=== PATIENT | female | born 1970 | race Caucasian/White ===

== ENCOUNTER 2018-04-22 08:46 | Day surgery (SDC) | payer OTHER, MEDICAID, SELFPAY ==
[2018-04-21 11:48] VITALS: BMI 49.2
[2018-04-22] VITALS (15 sets, daily range): BP systolic 127–155; BP diastolic 55–81; PULSE 65–114; RESP 16–24; TEMP 36.1–36.8; O2SAT 93–99; BMI 49.2
--- NOTE | 2018-04-22 | PATH_ITS ---
[facility] Accession Number: [id number] . 01 Material submitted: . GALLBLADDER . 02 Diagnosis: Gallbladder, Cholecystectomy: Chronic cholecystitis. No calculi identified. Negative for dysplasia and malignancy. 04/24/2018 . 02 Electronically signed: . Gerda Vora MD, Pathologist NPI- [id number] . 01 Gross description: . Received in formalin, labeled gallbladder, is an opened gallbladder (length-6.2 cm, diameter-1.5 cm) with persaud-pink, smooth, shiny serosa and a patent cystic duct. No lymph nodes are identified. The mucosa is cheney, smooth, and flat. The wall is up to 0.1 cm thick. No bile or calculi are present. No nodules, masses, or lesions are identified. Section code: (A1) cystic duct resection margin and two serial sections from the body; (A2) two longitudinal sections from the fundus. ([id number]) /FRR . 02 Pathologist provided ICD-10: K81.1 . 02 CPT . 321367 Performed at: 01 [facility] [address] [place] [address], [place], [place] [id number] MD Raudel Urena MD Phone: [phone] Performed at: 02 [facility] [address] [place], [place] [id number] MD Ludwig Nguyen MD Phone: [phone]
--- NOTE | 2018-04-22 07:02 | PM.PREOP ---
Pre-operative Note Interval Note Pre-op Check: History & Physical Reviewed by Physician and Exam Performed H&P completed within 30 days and has changed as indicated here:: Patient seen and examined in the office on April 10, 2018. History and physical examination from that day is on the chart. There are no changes to that document. We will proceed with laparoscopic cholecystectomy today as planned.
[2018-04-22] MEDS: LACTATED RINGERS 1,000 ML 42 ML IV ×2 (10:18→11:56)
[2018-04-22] MEDS: CLINDAMYCIN 900 MG/50 ML PIGGYBACK 50 MG IV (10:27)
--- NOTE | 2018-04-22 10:50 | SUR.OPER ---
Supine on padded OR bed, head on pillow, arms secured on padded arm boards at <90 degrees abduction, legs uncrossed, safety belt at thigh, tape over blanket over lower legs, footboard used.
[2018-04-22] MEDS: LIDOCAINE 1% W/EPI INJ 30 ML INJ (10:59)
[2018-04-22] MEDS: BUPIVACAINE 0.5% (PF) 30 ML VIAL INJ (10:59)
[2018-04-22] MEDS: THROMBIN (BOVINE) 5,000 UNIT VIAL 10000 UNIT TOP (11:55)
--- NOTE | 2018-04-22 12:23 | PM.OP.1 ---
Operative Date/Time/Diagnoses - Date of procedure: 04/22/18 Time of procedure: 12:23 Post-op diagnosis: same Procedure & Clinicians Procedure: Laparoscopic cholecystectomy Same procedure as scheduled: Yes Indications: 47-year-old morbidly obese female who presented with intermittent right upper quadrant abdominal pain consistent with biliary colic. She had no evidence of gallstones but did have a significantly diminished ejection fraction on HIDA scan with CCK administration. Because her symptoms were consistent with biliary disease she was recommended to undergo cholecystectomy. Surgeon: Marquis Mascorro Click Yes if Unassisted: Yes Anesthesia Type: General Operative Notes Findings: 1. Fatty infiltrated liver but without evidence of other lesions or abnormalities 2. Adhesions in the left lower quadrant and pelvis consistent with prior hysterectomy 3. No free fluid anywhere in the abdomen 4. Grossly normal stomach, small bowel, and colon within the noted limitations of laparoscopic visualization Closure Type: primary Specimen(s): other (Gallbladder) Implants & Drains: None Procedure in detail: After obtaining informed consent the patient was brought to the operating room placed supine on the table. After satisfactory induction of anesthesia the abdomen was prepped and draped in usual sterile fashion. The SCOAP time out was performed per standard protocol. Local anesthesia consisting of a one-to-one mixture 1% lidocaine with 1 100,000 epinephrine and 0.25% plain Marcaine was injected in the skin and subcutaneous tissue at the superior aspect of the umbilicus for postoperative analgesia. Vertical midline incision was created for distance of approximately 2 cm with 11 scalpel blade at the superior aspect the umbilicus. Blunt dissection revealed the rectus fascia which was divided in the midline with a 11. Scalpel blade. Edges of the fascia were secured bilaterally with Eric clamps. The fascia was elevated into the operative field and 2 individual interrupted 0 Vicryl sutures were placed through the fascia superiorly and inferiorly. Peritoneum was then exposed and clamped meticulously between hemostats then divided under direct visualization sharply. Under direct visualization a blunt 12 mm Sevilla trocar was inserted into the abdomen and a carbon dioxide pneumoperitoneum was created. Abdomen was visually explored with a 30 degree 5 mm laparoscoped. Findings are as above. Patient was placed in reverse Trendelenburg position. 5 mm epigastric trocar was inserted just to the right of the falciform ligament in the subxiphoid position after obtaining local anesthesia. In a similar fashion 2 additional 5 mm trocars were placed in the right lateral abdomen. A ratcheted grasper was used to secure the fundus of the gallbladder which was then retracted superiorly and medially. There were several adhesions between the omentum and the gallbladder taken down bluntly with Christiano graspers. Infundibulum of the gallbladder was secured with a Christiano grasper and retracted inferiorly and laterally. Meticulous dissection in the triangle of Calot was performed with a [place] dissecting thereby exposing the cystic duct and cystic artery. Structures were skeletonized overlying connective tissue and their junctions with the gallbladder were clearly visualized. Critical view was obtained of the liver bed through the avascular window between the cystic duct and cystic artery. Three clips were then placed proximally on each structure and 1 distally. Both structures were divided with laparoscopic scissors. There was a small posterior vessel directly entering the gallbladder which was controlled with 2 clips proximally 1 distally then divided with the scissors as well. Monopolar cautery was used to remove the gallbladder from the hepatic bed. Specimen was placed in an endo-pouch and retrieved through the umbilical trocar site. Specimen was sent for permanent section. There was a single bleeding hepatic venous superficial vessel just at the hepatic bed which demonstrated generalized oozing. Despite monopolar cautery I was unable to completely control it and therefore placed Gel-Foam and thrombin on the liver bed over the structure. Hemostasis was then obtained. Previously placed clips were meticulously visualized and noted to be in good position. There was no evidence of hemorrhage or bile leakage. Right upper quadrant including the liver bed was irrigated with copious amounts of sterile saline solution. Irrigant was suctioned from the abdomen and noted be completely clear. Liver bed structures were again examined and noted to be hemostatic. Patient was returned to the supine position. Right upper quadrant was again irrigated and suction with sterile saline solution. Irrigant returned clear and hemostasis was verified. Instruments and trocars were removed under direct laparoscopic visualization. Hemostasis at the incisions was noted. Carbon dioxide was evacuated. Fascia at the umbilical site was closed with the previously placed 0 Vicryl suture including an additional 0 Vicryl suture between the superior and inferior stitches. Skin at all 4 incisions was then closed in a subcuticular fashion using running 4 0 Monocryl suture. Dermal adhesive was placed on the skin. Anesthesia was reversed and patient extubated in the operating room. She was taken recovery in stable condition. Complications: none Condition: stable Disposition: PACU Plan for aftercare: 1. Discharge to home 2. Follow up in surgery Clinic in 2 weeks
[2018-04-22] MEDS: METOCLOPRAMIDE 10 MG/2 ML INJ IV (12:33)
--- NOTE | 2018-04-22 12:37 | SUR.PHASEI ---
Intermittent shaking of lower extremities. Denies feeling cold or anxious. Will watch.
[2018-04-22] MEDS: MEPERIDINE 50 MG/ML IV ×2 (12:42→13:01)
--- NOTE | 2018-04-22 13:04 | SUR.PHASEI ---
Continued shivering. Second doseof Demerol to make a total of 50mg given. As with the first dose becoming more somnolent and some decrease in sats seen. Hx of MANUEL noted.
--- NOTE | 2018-04-22 13:11 | SUR.PHASEI ---
Slow but steady recovery with some shivering, not initially resposnive to Demerol and after a second dose appearing resolved. Low grade nausea reported better after Reglan. Droswy after med (IV) receipt prolonging stay. BP stable with initial tachy HR resolving to preop readings.
[2018-04-22] MEDS: OXYCODONE/ACETAMINOPHEN 5/325 TABLET 1 TAB PO (13:18)
[2018-04-22] MEDS: ONDANSETRON 4 MG/2 ML INJ IV (13:40)
--- NOTE | 2018-04-22 13:42 | SUR.PHASEI ---
Prior to discharge to Phase II, c/o mild right shoulder pain. Bed flattened with some resolution.
--- NOTE | 2018-04-22 13:52 | SUR.PHASEII ---
parents at bedside- pt medicated with ondansetron for mild nausea, tolerating ice chips.
--- NOTE | 2018-04-22 16:18 | SUR.PHASEII ---
late entry: pt had some nausea on and off through out shift, fluids continued and pt finally nausea free, ate crackers and water and ice chips. assisted to br, steady when up voided x 1. incisions with glue remained c/d/i. vss. pt left when ready and left in stable condition.
== END 2018-04-22 15:00 | disposition home or self-care (01) ==
PROVIDERS: Family Provider Family Medicine; PCP Family Medicine; Visit Provider Surgery
PROC: 0FT44ZZ Resection of Gallbladder, Percutaneous Endoscopic Approach (ICD-10-PCS; CPT 47562; principal; 2018-04-22 10:15)
DX: K81.1 Chronic cholecystitis (principal); K76.0 Fatty (change of) liver, not elsewhere classified; K66.0 Peritoneal adhesions (postprocedural) (postinfection); G47.33 Obstructive sleep apnea (adult) (pediatric); E66.01 Morbid (severe) obesity due to excess calories; Z68.42 Body mass index [BMI] 45.0-49.9, adult
CPT/HCPCS: 47562; J1100; J2175; J2405; J2704; J2765; J3010

== ENCOUNTER → 2018-07-16 09:27 | Outpatient (CLI) | payer OTHER, MEDICAID, SELFPAY ==
--- NOTE | 2018-07-16 | DI.MRI.S_ITS ---
PROCEDURE: MR LUMBAR SPINE WO CON INDICATIONS: CHRONIC MIDLINE LOW BACK PAIN TECHNIQUE: Noncontrast sagittal T1 spin echo and T2 fast echo, sagittal STIR, axial T1 and T2 fast spin echo through the lumbar spine. In cases with scoliosis, additional coronal T2 fast spin echo may be performed. COMPARISON: [facility], , L-SPINE 2-3 VIEWS, 04/05/2014, 10:58. FINDINGS: Image quality: Excellent. Alignment and Curvature: There is normal bony alignment. Bone Marrow: Marrow is of normal overall signal. No acute vertebral body compression fractures. Spinal Cord: Conus medullaris terminates at the T12-L1 level. Visualized cord demonstrates normal signal and size. Paraspinous Soft Tissues: No paravertebral masses. T12-L1: Normal appearance. L1-L2: Normal appearance. L2-L3: Normal appearance. L3-L4: The disc height is well-preserved. Loss of disc signal is seen at this level. Mild generalized disc bulge is seen. Mild facet joint hypertrophy is seen. There is minimal to mild right-sided and minimal left-sided neural foraminal narrowing seen. Minimal central canal narrowing is seen. L4-L5: The disc height and disk signal are well-preserved. Mild generalized disc bulge is seen. Mild facet joint hypertrophy is seen. There is mild to moderate left-sided and mild right-sided neural foraminal narrowing seen. Mild central canal narrowing is seen. L5-S1: The disc height and disk signal are well-preserved. Mild generalized disc bulge is seen. Mild facet joint hypertrophy is seen. No significant neural foraminal or central canal narrowing are seen. IMPRESSION: Lower lumbar spine degenerative changes are seen, which are overall most prominent at the L3-L4 level and L4-L5 level. Dictated by: Dipak Toscano M.D. on 07/16/2018 at 11:08 Approved by: Dipak Toscano M.D. on 07/16/2018 at 11:12
== END ==
PROVIDERS: Family Provider Family Medicine; PCP Family Medicine; Visit Provider Family Medicine
DX: M54.5 Low back pain (principal); M51.36 Other intervertebral disc degeneration, lumbar region; M51.37 Other intervertebral disc degeneration, lumbosacral region
CPT/HCPCS: 72148

== ENCOUNTER → 2018-10-22 10:41 | Outpatient (CLI) | payer OTHER, MEDICAID, SELFPAY ==
--- NOTE | 2018-10-22 | DI.MG.S_ITS ---
BILATERAL DIGITAL SCREENING MAMMOGRAM 3D/2D WITH CAD: 10/22/2018 CLINICAL: Routine screening. Family history of breast cancer. Comparison is made to exams dated: 09/04/2017 mammogram and 08/27/2016 mammogram - [facility]. The tissue of both breasts is heterogeneously dense. This may lower the sensitivity of mammography. Current study was also evaluated with a Computer Aided Detection (CAD) system. No significant masses, calcifications, or other findings are seen in either breast. There has been no significant interval change. IMPRESSION: NEGATIVE There is no mammographic evidence of malignancy. A 1 year screening mammogram is recommended. This exam was interpreted at Station ID: [id number]. NOTE: For mammograms, a report in lay terms will be sent to the patient. Approximately 15% of breast malignancies will not be visualized mammographically. In the management of a palpable breast mass, a negative mammogram must not discourage biopsy of a clinically suspicious lesion. Electronically Signed By: Kristal rivera/mehreen:10/22/2018 16:27:28 letter sent: Normal Exam ACR BI-RADS Category 1: Negative [id number]
== END ==
PROVIDERS: Family Provider Family Medicine; PCP Family Medicine; Visit Provider Family Medicine
DX: Z12.31 Encounter for screening mammogram for malignant neoplasm of breast (principal); Z80.3 Family history of malignant neoplasm of breast
CPT/HCPCS: 77063; 77067

== ENCOUNTER 2019-06-30 09:22 | Outpatient (CLI) | payer OTHER, MEDICAID, SELFPAY ==
[2019-06-30] VITALS (8 sets, daily range): BP systolic 127–159; BP diastolic 76–92; PULSE 79–99; RESP 16; TEMP 36.6; O2SAT 97–100
--- NOTE | 2019-06-30 09:23 | DI.RAD.S_ITS ---
PROCEDURE: PAIN L/S FACET INJ/BLK 1ST JEROD COMPARISON: None. INDICATIONS: SPONDYLOSIS FINDINGS: Intraoperative fluoroscopic images of lower lumbar spine shows spinal needle at bilateral L5-S1 levels. Total fluoroscopy time is 23 seconds. IMPRESSION: Fluoroscopy guidance was provided intraoperatively for bilateral L5-S1 facet joint injection. Dictated by: Andi Hodges M.D. on 06/30/2019 at 12:49 Approved by: Andi Hodges M.D. on 06/30/2019 at 12:50
[2019-06-30] MEDS: MIDAZOLAM 5 MG/5 ML VIAL IV (10:46)
[2019-06-30] MEDS: IOPAMIDOL 15 ML VIAL 3 ML INJ (10:52)
[2019-06-30] MEDS: BUPIVACAINE 0.5% (PF) VIAL 5 ML INJ (10:52)
[2019-06-30] MEDS: LIDOCAINE 1% 20 ML 10 ML INJ (10:52)
[2019-06-30] MEDS: BETAMETHASONE 30 MG/5 ML MDV 12 MG INJ (10:52)
--- NOTE | 2019-06-30 10:57 | PC.NURSE ---
ASSISTING PT OFF TABLE AND TRANSPORTING TO POST PROC AREA IN STABLE CONDITION
--- NOTE | 2019-06-30 11:01 | PM.PROC.1 ---
Procedures Date/Time Date of procedure: 06/30/19 Time of procedure: 11:01 General Procedure description: PREOP DIAGNOSIS 1. FACET ARTHROPATHY, 2. AXIAL LBP, 3. MULTILEVEL DDD, POST OP DIAGNOSIS 1. FACET ARTHROPATHY, 2. AXIAL LBP, 3. MULTILEVEL DDD, PROCEDURES 1. FLUORSCOPICALLY GUIDED CONTRAST CONTROLLED FACET JOINT INJECTIONS BILATERAL L5/S1 PHYSICIAN: Chin Keller, DO INDICATIONS Francesco is referred by for treatment of Axial LBP FINDINGS Multilevel Facet Arthropathy with Clinically significant axial LBP DESCRIPTION OF PROCEDURE Fluoroscopically guided, contrast-controlled bilateral L5/S1 facet joint injections. Following review of allergy and review of potential side effects and complications, including, but not necessarily limited to, infection, allergic reaction, local tissue breakdown, stroke, temporary or permanent nerve injury, paralysis, and possible , the patient indicated that the patient understood and agreed to proceed. An informed consent document was signed by the patient, witnessed by a nurse, and placed in the patient's chart. Additionally, other treatment options including medications, modalities, and physical therapy were reviewed with the patient. After review of previous anaesthesic history and IV conscious sedation the patient was deemed safe to proceed with todays procedure with IV conscious sedation as ASA class II designation. Safety time-out was performed to confirm patient ID, procedure to be performed and site of procedure. IV sedation was accomplished with a combination of 4mg of Versed administered by the RN after DO order, titrated to patient comfort during the course of the procedure while the patient remained responsive to all verbal commands In the prone position, following sterile prep and drape of the lumbar region, the posterior aspect of the L5/S1 facet joints were identified fluoroscopically. The skin was anesthetized via a 25-gauge 1.5-inch needle with 1% lidocaine solution into the corresponding facet joints. At this point, a 22-gauge 5-inch spinal needle was atraumatically introduced and advanced under fluoroscopic guidance into the corresponding facet joints. Following negative aspiration, injections of approximately 0.2-cc of Isovue 200 confirmed interarticular placement without vascular uptake. The identical procedure was then performed at the L5/S1 facet joints on the left. Radiological data, including multiple fluoroscopic views of the lumbosacral spine, reveal a spinal needle at the L5/S1 facet joints bilaterally. Subsequent views show flow of contrast material both superiorly and inferiorly within the joint space without vascular or intrathecal uptake. At this point, a total of 0.5cc including a mixture of 0.25cc Marcaine and 0.25cc betamethasone was injected without complication into each of the corresponding facet joints. The patient tolerated the procedure well without signs or symptoms of complications prior to transfer to the recovery area continued monitoring without incident. The patient was then transferred to the recovery area where they were observed for an appropriate period of time after the injection. The patient reported a VAS score of 7 prior to the procedure and a post-procedure VAS of 0. Total Fluoroscopy Time: 21.0 seconds Total conscious sedation time: 24 min POST OP INSTRUCTIONS The patient was provided a Pain Log to continue to record their response to the target-specific procedure prior to follow-up visit with their referring physician. Additionally, specific post-injection care instructions and a contact number to our office were provided if concerns arise regarding possible complications associated with the procedure are suspected. Chin Keller, Complications: none
--- NOTE | 2019-06-30 11:04 | PC.NURSE ---
Pt returned from procedure via wheelchair awake and alert and able to transfer from w/c to chair with standby assist. Resumed monitoring from Betsy LENNON.
== END 2019-06-30 11:25 ==
LOC: RAD 09:22
PROVIDERS: Family Provider Family Medicine; PCP Family Medicine; Visit Provider Physical Medicine & Rehabilitation
DX: M47.817 Spondylosis without myelopathy or radiculopathy, lumbosacral region (principal)
CPT/HCPCS: 64493; 99152; J0702; J2250; J3010

== ENCOUNTER 2020-01-14 11:28 | Outpatient (CLI) | payer OTHER, MEDICAID, SELFPAY ==
[2020-01-14] VITALS (9 sets, daily range): BP systolic 115–153; BP diastolic 56–96; PULSE 70–108; RESP 16–18; TEMP 36.4; O2SAT 96–98
--- NOTE | 2020-01-14 11:29 | DI.RAD.S_ITS ---
PROCEDURE: PAIN L/S FACET INJ/BLK 1ST JEROD COMPARISON: None. INDICATIONS: SPONDYLOSIS FINDINGS: 6 intraoperative fluoroscopy images demonstrate needle placement at L5 and S1 levels bilaterally. IMPRESSION: Fluoroscopy for pain management. Dictated by: Onofre Unger M.D. on 01/14/2020 at 13:45 Approved by: Onofre Unger M.D. on 01/14/2020 at 13:46
[2020-01-14] MEDS: MIDAZOLAM 5 MG/5 ML VIAL IV (13:11)
[2020-01-14] MEDS: LIDOCAINE 1% 20 ML 5 ML INJ (13:23)
[2020-01-14] MEDS: IOPAMIDOL 15 ML VIAL 3 ML INJ (13:24)
[2020-01-14] MEDS: BUPIVACAINE 0.5% (PF) VIAL 2 ML INJ (13:24)
--- NOTE | 2020-01-14 13:25 | PC.NURSE ---
ASSISTING PT OFF TABLE AND TRANSPORTING TO POST PROC AREA IN STABLE CONDITION. PASSING RN CARE OF PT OFF TO VICKY Ramos RN.
--- NOTE | 2020-01-14 13:36 | PM.PROC.1 ---
Procedures Date/Time Date of procedure: 01/14/20 Time of procedure: 13:36 General Procedure description: POST OP DIAGNOSIS 1. FACET ARTHROPATHY PROCEDURES 1. BILATERAL- L5 and S1 MB BLOCKS PHYSICIAN: Chin Keller DO INDICATIONS is referred by for treatment of Bilateral Axial LBP. DESCRIPTION OF PROCEDURE Fluoroscopically guided, contrast-controlled bilateral L5 and S1 medial branch blocks with 0.5cc of 0.5% Marcaine. Following review of allergy and review of potential side effects and complications, including, but not necessarily limited to, infection, allergic reaction, local tissue breakdown, nerve injury, paralysis, stroke and possible , the patient indicated that the patient understood and agreed to proceed. An informed consent document was signed by the patient, witnessed by a nurse, and placed in the patient's chart. After review of previous anaesthesic history and IV conscious sedation the patient was deemed safe to proceed with todays procedure with IV conscious sedation as ASA class II designation. Safety time-out was performed to confirm patient ID, procedure to be performed and site of procedure. IV sedation was accomplished with 5mg of Versed was administered by the RN after DO order, titrated to patient comfort during the course of the procedure while the patient remained responsive to all verbal commands In the prone position, following sterile prep and drape of the lumbar region, the right L5 and S1 anatomical location of the medial branch of the dorsal ramus was identified fluoroscopically. Subsequently an anesthetic skin wheal using 1% lidocaine solution was initiated at each of the anatomical spots. Subsequently then a 22-gauge 5-inch spinal needle was atraumatically introduced and advanced under fluoroscopic guidance at each of the corresponding sites at the right L5 and S1 MB. After negative aspiration, 0.2 cc of Isovue 200 was injected, confirming placement without vascular or intrathecal uptake. Subsequently then 0.5 cc of 0.5% Marcaine solution was injected at each of the corresponding sites at the right L5 and S1 medial branch locations. The identical procedure was replicated on the left. The patient tolerated the procedure well without signs or symptoms of complications. The patient tolerated the procedure well without signs or symptoms of complications prior to transfer to the recovery area continued monitoring without incident. Post-procedure, the patient was monitored initiating provocative activities to measure the amount of relief from block of the facetogenic pain. The patient reported a VAS of 7 prior to the procedure and a post-procedure VAS of 2. It has been a pleasure to assist in the diagnostic and therapeutic care of your patient. Total Fluoroscopy Time: 12 seconds Total Conscious Sedation Time: 24min POST OP INSTRUCTIONS The patient was provided with a Pain Log to complete over the next several hours and subsequent days prior to the patient's follow up with the ordering physician. If the patient has corporate strategy intern relief to the solution applied, then they may be a candidate for medial branch rhizotomy. The patient is aware, was provided, once again, with a Pain Log and will follow up with the referring physician for review and clinical correlation Chin Keller DO Complications: none
--- NOTE | 2020-01-14 13:47 | PC.NURSE ---
1340: Received patient post procedure by Betsy LENNON, trasferred from to chair with min assist. VSS upon arrival.
== END 2020-01-14 13:50 | disposition home or self-care (01) ==
LOC: RAD 11:29
PROVIDERS: Family Provider Family Medicine; PCP Family Medicine; Referring Provider Family Medicine; Visit Provider Physical Medicine & Rehabilitation
DX: M47.817 Spondylosis without myelopathy or radiculopathy, lumbosacral region (principal)
CPT/HCPCS: 64493; 99152; J2250; J3010

== ENCOUNTER → 2021-05-24 08:38 | Outpatient (CLI) | payer OTHER, MEDICAID, SELFPAY ==
[2021-05-24 20:07] LABS: Add Manual Diff / Slide Review NO; Basophils Absolute Auto 0 /uL (0-100); Basophils Percent Auto 0.3 % (0-2); Eosinophils Absolute Auto 200 /uL (0-450); Eosinophils Percent Auto 2.6 % (2-4); Hemoglobin 13.4 g/dL (12.0-16.0); Lymphocytes Absolute Auto 2800 /uL (1100-4500); Lymphocytes Percent Auto 38.9 % (25-40); Mean Corpuscular HGB Conc 32.7 % (30-36); Mean Corpuscular Hemoglobin 28.6 PG (26-34); Mean Corpuscular Volume 87.4 fL (80-100); Monocytes Absolute Auto 600 /uL (0-900); Monocytes Percent Auto 8.2 % (3-14); Neutrophils Absolute Auto 3600 /uL (1500-7000); Platelet Count 312 X10^3/uL (150-400); Red Blood Cell Count 4.69 X10^6/uL (4.0-5.2); Red Cell Distribution Width 14.1 % (11.6-14.8); White Blood Cell Count 7.1 X10^3/uL (4.5-11.0)
[2021-05-24 20:47] LABS: Alanine Aminotransferase 19 IU/L (<35); Albumin 3.8 g/dL (3.5-5.0); Albumin Globulin Ratio 1.2 (1.0-2.8); Alkaline Phosphatase 88 U/L (38-126); Aspartate Aminotransferase 25 IU/L (14-36); BUN Creatinine Ratio 11.7 (6-22); Bilirubin Total 0.6 mg/dL (0.2-1.3); Blood Urea Nitrogen 9 mg/dL (7-17); Calcium 9.5 mg/dL (8.4-10.2); Carbon Dioxide 28 mmol/L (22-32); Chloride 105 mmol/L (98-107); Cholesterol 154 mg/dL (140-199); Estimated Glomerular Filt Rate > 60.0 mL/min (>60); Globulin 3.2 g/dL (1.7-4.1); Glucose 122 mg/dL (70-100); HDL Cholesterol 41 mg/dL (40-60); HEMOLYSIS < 15 (0-50); LDL Cholesterol Calculated 82 mg/dL (<100); Potassium 4.4 mmol/L (3.4-5.1); Sodium 139 mmol/L (137-145); Triglycerides 155 mg/dL (35-150)
[2021-05-24 20:58] LABS: Follicle Stimulating Hormone 5.29 mIU/mL; Luteinizing Hormone 2.51 mIU/mL
[2021-05-24 21:14] LABS: TSH w/ Reflex to FT4 0.91 uIU/mL (0.47-4.68)
[2021-05-30 08:16] LABS: Estrogen 189 pg/mL (.)
== END ==
PROVIDERS: Family Provider Family Medicine; PCP Family Medicine; Referring Provider Family Medicine; Visit Provider Family Medicine
DX: E66.01 Morbid (severe) obesity due to excess calories (principal); F32.9 Major depressive disorder, single episode, unspecified; F41.9 Anxiety disorder, unspecified; R19.8 Other specified symptoms and signs involving the digestive system and abdomen; R53.83 Other fatigue; Z68.43 Body mass index [BMI] 50.0-59.9, adult; Z90.710 Acquired absence of both cervix and uterus
CPT/HCPCS: 80053; 80061; 82672; 83001; 83002; 84443; 85025

== ENCOUNTER → 2021-10-05 09:15 | Outpatient (CLI) | payer OTHER, MEDICAID, SELFPAY ==
--- NOTE | 2021-10-05 09:29 | DI.CT.S_ITS ---
PROCEDURE: CT ABDOMEN PELVIS WO/W CON INDICATIONS: Other microscopic hematuria TECHNIQUE: Optional 5 mm thick noncontrast images acquired from the diaphragm to the symphysis pubis. After the administration of intravenous contrast, 5 mm thick images acquired from the diaphragm to the symphysis pubis after a 10-minute delay. 2 mm thick coronal and sagittal reformats were then performed of the kidneys and ureters. For radiation dose reduction, the following was used: automated exposure control, adjustment of mA and/or kV according to patient size. COMPARISON: None. FINDINGS: Image quality: Excellent. Lung bases: Right middle lobe pulmonary nodule measuring 0.5 cm, (4/4). Minimal bibasilar atelectasis. Heart size is normal. Urinary system: Both kidneys are normal in size. There is an obstructing calculus at the left UPJ measuring 1.4 x 1.1 cm, (2/36). Mild left hydronephrosis. No additional kidney stones. No filling defect in the opacified right ureter. The left ureter is not opacified. Bladder wall thickness is normal. No calcified bladder stones. Other solid organs: Right lobe of the liver is prominent. Gallbladder is surgically absent . Biliary system is non dilated. Pancreas enhances normally. Spleen is normal in size and enhancement. Small splenules. No adrenal nodules. Peritoneum and bowel: Bowel loops demonstrate normal wall thickness and caliber. No free fluid or air. Nodes and vessels: No retroperitoneal or mesenteric adenopathy by size criteria. Aorta and inferior vena cava are normal in size. Circumaortic left renal vein. Abdominal wall: No ventral hernias. Pelvis: No pathologic free pelvic fluid. Uterus is absent. No inguinal hernias or adenopathy. Bones: No suspicious bony lesions. No vertebral body compression fractures. IMPRESSION: 1. Obstructing calculus at the left UPJ measuring 1.4 cm. Mild hydronephrosis. 2. No additional kidney stones. 3. No filling defect in the opacified right ureter. The left ureter is not opacified and cannot be evaluated. Comment: Findings were conveyed to the urology clinic on behalf of Sheila Thornton at the time of dictation. Dictated by: Reginald Mahajan M.D. on 10/05/2021 at 11:41 Approved by: Reginald Mahajan M.D. on 10/05/2021 at 11:54
== END ==
PROVIDERS: Family Provider Family Medicine; PCP Family Medicine; Referring Provider Urology; Visit Provider Urology
DX: N13.2 Hydronephrosis with renal and ureteral calculous obstruction (principal); R31.29 Other microscopic hematuria; R91.1 Solitary pulmonary nodule; Z90.49 Acquired absence of other specified parts of digestive tract
CPT/HCPCS: 74178; Q9967

== ENCOUNTER → 2022-02-05 08:29 | Outpatient (CLI) | payer OTHER, MEDICAID, SELFPAY ==
[2022-02-05 20:36] LABS: COVID19 - ORCAS (NP or Nasal) Negative (Negative)
== END ==
PROVIDERS: Family Provider Family Medicine; PCP Family Medicine; Visit Provider Physician Assistant
DX: Z01.812 Encounter for preprocedural laboratory examination (principal); Z20.822 Contact with and (suspected) exposure to COVID-19
CPT/HCPCS: C9803; U0003

== ENCOUNTER 2022-02-19 08:33 | Emergency (ER) | payer OTHER, MEDICAID, SELFPAY ==
[2022-02-19 09:07] VITALS: BP 174/71; PULSE 67; RESP 20; TEMP 37; O2SAT 98; BMI 53.5
[2022-02-19 09:50] LABS: Appearance Urine UA SL CLOUDY; Bilirubin Urine UA NEGATIVE (NEGATIVE); Color Urine UA YELLOW; Glucose Urine UA NEGATIVE (Negative); Ketones Urine UA NEGATIVE (NEGATIVE); Leukocyte Esterase Urine UA 1+ (NEGATIVE); Nitrite Urine UA NEGATIVE (Negative); Occult Blood Urine UA 3+ (Negative); Protein Urine UA 1+ (Negative); Urobilinogen Urine UA 0.2 E.U./dL (0.2)
[2022-02-19 09:59] LABS: Bacteria Urine None Seen; Culture Indicated Urine Specimen Cultured; RBC Urine 30-100/HPF (0-5/HPF); WBC Urine 1-5/HPF (0-5/HPF)
--- NOTE | 2022-02-19 10:13 | DI.CT.S_ITS ---
PROCEDURE: CT ABDOMEN PELVIS W CON INDICATIONS: pain after ureteral stent TECHNIQUE: After the administration of intravenous contrast, axial sections acquired from the lung bases to the pubic symphysis. Coronal and sagittal reformats were performed. For radiation dose reduction, the following was used: automated exposure control, adjustment of mA and/or kV according to patient size. COMPARISON: [facility], CT, CT ABDOMEN PELVIS WO/W CON, 10/05/2021, 9:33. FINDINGS: Image quality: Excellent. Lung bases: Bibasilar dependent atelectasis are seen posteriorly.. Heart: No significant findings. ABDOMEN: Liver: There is hepatomegaly. Mild hepatic steatosis is seen, no discrete hepatic lesion.. Gallbladder: Gallbladder is surgically absent. Biliary ducts: Unremarkable. Pancreas: Unremarkable. Spleen: 2 tiny hypodense areas are noted within spleen parenchyma unchanged from prior study and likely represent tiny cysts. Adrenal Glands: Unremarkable. Kidneys and Ureters: There is interval placement of a left-sided ureteral stent. Moderate left-sided hydronephrosis extending to the level of left UPJ is seen. Nonobstructing stone in lower pole of left kidney is noted and measures 1 cm in size and 440 Hounsfield unit in density. Mild left perinephric fat stranding is seen. No left-sided hydroureter. No right-sided renal stone or hydronephrosis. Stomach and Bowel: Stomach, small bowel loops, and colon are unremarkable. Peritoneum: No abnormal intraperitoneal fluid. No free air. Ventral Wall: No hernias. Abdominal Nodes: No retroperitoneal or mesenteric adenopathy by size criteria. Vessels: Aorta and inferior vena cava are normal in size. PELVIS: Pelvic Organs: Unremarkable. Bladder: Unremarkable. Pelvic Nodes: No enlarged lymph nodes. Miscellaneous: No hernias are seen. Bones: No suspicious bony lesion. No acute vertebral body compression fracture. Degenerative disc disease in lower lumbar spine at L4-5 and L5-S1 levels are seen. IMPRESSION: 1. Interval placement of left-sided ureteral stent with moderate left-sided hydronephrosis and perinephric fat stranding extending to the level of left UPJ concerning for stent malfunction suggest clinical correlation. Nonobstructing stone in lower pole of left kidney. No right-sided hydronephrosis or hydroureter. Normal appearing urinary bladder. 2. No bowel obstruction or abnormal bowel wall thickening. No free fluid or free air. 3. Hepatomegaly and hepatic steatosis. Dictated by: Andi Hodges M.D. on 02/19/2022 at 11:55 Approved by: Andi Hodges M.D. on 02/19/2022 at 12:04
[2022-02-19 11:02] LABS: Pregnancy Test Urine Negative (Negative)
[2022-02-19 11:09] LABS: Add Manual Diff / Slide Review NO; Basophils Absolute Auto 100 /uL (0-100); Basophils Percent Auto 1.2 % (0-2); Eosinophils Absolute Auto 200 /uL (0-450); Hematocrit 39.2 % (36-46); Hemoglobin 13.3 g/dL (12.0-16.0); Lymphocytes Absolute Auto 2500 /uL (1100-4500); Lymphocytes Percent Auto 29.9 % (25-40); Mean Corpuscular Hemoglobin 28.7 PG (26-34); Mean Corpuscular Volume 84.5 fL (80-100); Monocytes Absolute Auto 800 /uL (0-900); Monocytes Percent Auto 9.1 % (3-14); Neutrophils Absolute Auto 4900 /uL (1500-7000); Neutrophils Percent Auto 57.8 % (50-75); Platelet Count 269 X10^3/uL (150-400); Red Blood Cell Count 4.64 X10^6/uL (4.0-5.2); Red Cell Distribution Width 13.7 % (11.6-14.8); White Blood Cell Count 8.5 X10^3/uL (4.5-11.0)
[2022-02-19 11:20] LABS: Alanine Aminotransferase 15 IU/L (<35); Albumin 4.2 g/dL (3.5-5.0); Albumin Globulin Ratio 1.1 (1.0-2.8); Alkaline Phosphatase 83 U/L (38-126); Aspartate Aminotransferase 21 IU/L (14-36); BUN Creatinine Ratio 10.6 (6-22); Bilirubin Total 0.4 mg/dL (0.2-1.3); Blood Urea Nitrogen 10 mg/dL (7-17); Carbon Dioxide 28 mmol/L (22-32); Chloride 109 mmol/L (98-107); Estimated Glomerular Filt Rate > 60 mL/min (>60); Globulin 3.8 g/dL (1.7-4.1); Glucose 121 mg/dL (70-100); HEMOLYSIS < 15 (0-50); Lipase 86 U/L (23-300); Potassium 4.3 mmol/L (3.4-5.1); Sodium 143 mmol/L (137-145)
--- NOTE | 2022-02-19 12:14 | ED.ABDPAIN ---
HPI - Abdominal Pain <NAOMY Hightower - Last Filed: 02/19/22 15:13> General Chief Complaint: Abdominal Pain Stated Complaint: pain after kidney stent placement Time Seen by Provider: 02/19/22 10:13 Source: patient Mode of arrival: Ambulatory History of Present Illness HPI narrative: This is a 51-year-old female presents to the emergency department complaining of left flank and left abdominal pain after her ureteral stent was placed [address] Sheila pugh. 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 Patient denies having a fever, nausea vomiting, states that it has been mostly pain pain into left lower quadrant region. She has been taking 10 mg of Toradol every 6 hours as needed for this. She denies any dysuria, does endorse having bladder spasms before and after voiding. She denies any mathew blood in her urine, denies feeling faint or weak. Related Data Home Medications Medication Instructions Recorded Confirmed cetirizine 10 mg tablet (Aller-Domenic) 10 mg PO DAILY tab 04/10/18 08/16/21 gabapentin 300 mg capsule 2,100 mg PO DAILY cap 04/10/18 08/16/21 omega 0-[id number]-lxw-fish oil 1,000 mg 1,400 mg PO BEDTIME cap 04/10/18 08/16/21 (120 mg-180 mg) capsule (Fish Oil) aripiprazole 10 mg tablet 10 mg PO DAILY 02/12/19 08/16/21 amlodipine 5 mg tablet 5 mg PO DAILY 06/17/19 08/16/21 oxybutynin chloride 5 mg tablet 5 mg PO TID PRN 06/17/19 08/16/21 albuterol sulfate 90 mcg/actuation 2 puff INHALATION Q4-6H PRN 05/22/21 08/16/21 aerosol inhaler atorvastatin 10 mg tablet 10 mg PO DAILY 05/22/21 08/16/21 bupropion HCl 150 mg 24 hr tablet, 150 mg PO QAM 05/22/21 08/16/21 extended release fluticasone propionate 50 2 spray INTRANASAL DAILY 05/22/21 08/16/21 mcg/actuation nasal spray,suspension indomethacin 50 mg capsule 50 mg PO TID 05/22/21 08/16/21 liraglutide 0.6 mg/0.1 mL (18 mg/3 1.2 mg SUBCUT DAILY 05/22/21 08/16/21 mL) subcutaneous pen injector methocarbamol 500 mg tablet 500 mg PO QID PRN 05/22/21 08/16/21 Previous Rx's Medication Instructions Recorded naproxen 500 mg tablet (Naprosyn) 500 mg PO BID PRN #60 tab 04/11/21 tramadol 50 mg tablet 50 mg PO BID PRN #30 tab 04/11/21 ketorolac 10 mg tablet 10 mg PO Q8H PRN #30 tab 02/19/22 lidocaine 5 % topical patch 1 patch TOPICAL DAILY PRN #15 ea 02/19/22 (Lidoderm) oxycodone-acetaminophen 5 mg-325 1 tab PO Q8H PRN #14 tab 02/19/22 mg tablet (Percocet) Allergies Allergy/AdvReac Type Severity Reaction Status Date / Time duloxetine [DULOXETINE] Allergy Severe SOB Verified 02/19/22 09:07 hydrocodone [HYDROCODONE] Allergy Severe HEADACHE Verified 02/19/22 09:07 VOMITING Penicillins [PENICILLINS] Allergy Intermediate RASH Verified 02/19/22 09:07 <Ella Goodwin DO - Last Filed: 02/20/22 19:02> History of Present Illness HPI narrative: This is a 51-year-old female presents to the emergency department complaining of left flank and left abdominal pain after her ureteral stent was placed [address] Sheila Thornton. 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 Patient denies having a fever, nausea vomiting, states that it has been mostly pain pain into left lower quadrant region. She has been taking 10 mg of Toradol every 6 hours as needed for this. She denies any dysuria, does endorse having bladder spasms before and after voiding. She denies any mathew blood in her urine, denies feeling faint or weak. Review of Systems <NAOMY Hightower - Last Filed: 02/19/22 15:13> Review of Systems Narrative: General: denies fever, chills, malaise, sweats, fatigue Head/Neck: denies headache, neck pain, dizziness Eyes: denies visual changes, eye pain Cardio: denies chest pain, palpitations, edema Respiratory: denies dyspnea, cough, orthopnea GI: Endorses left lower quadrant abdominal pain, left flank pain, denies any nausea, vomiting, or diarrhea : denies dysuria, hematuria, urinary retention, frequency or incontinence MSK: denies joint pain, muscle weakness Skin: denies rash, itching, skin lesions or other Neuro: denies numbness, tingling Patient History <NAOMY Hightower - Last Filed: 02/19/22 15:13> Medical History (Updated 02/19/22 @ 13:18 by NAOMY Hightower) Abnormal Pap smear of cervix (~1995) Acne Anxiety Arthritis Bipolar 1 disorder Depression Difficulty swallowing Disc degeneration Eczema Excessive daytime sleepiness Facet arthropathy, lumbar Facet arthropathy, lumbosacral Fatigue Fibromyalgia History of recurrent ear infection Hyperglycemia Hyperlipidemia Irregular menstrual cycle Irritable bowel syndrome (~2000) MCL sprain of left knee edi consultant associated with adverse incidents Migraines Morbid obesity with body mass index (BMI) of 50.0 to 59.9 in adult Nausea & vomiting Obstructive sleep apnea (~1998) PTSD (post-traumatic stress disorder) Restless leg syndrome (~1998) Surgical History (Updated 05/23/21 @ 10:15 by Keith Jorgensen MD) Anesthesia H/O: hysterectomy (~2000) History of cholecystectomy (~2018) Previous section (~1992) S/P hysterectomy Family History (Updated 03/06/21 @ 18:56 by Noa Varela) Grandmother Hypertension Breast cancer Hyperlipidemia Father Hypertension Gall stone Hyperlipidemia Mother Mental health problem Fibromyalgia Social History marital status: unmarried,living together details: Lives with boyfriend number of children: 1 household members: significant other and children occupational status: employed 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 General: cooperative, comfortable, in no acute distress, obese, well developed and well groomed Head: atraumatic, symmetrical facial expressions Neck: supple, atraumatic, without lymphadenopathy. Eyes: pupils equal round and reactive, EOMI, conjunctiva normal Nose: nares patent, no rhinorrhea Mouth/Throat: uvula midline, moist mucus membranes Cardiovascular: regular rate and rhythm, no peripheral edema, warm extremities Respiratory: normal effort, able to speak in complete sentences, no audible wheezing, stridor, or rales. No retractions or tachypnea. GI: abdomen soft, nontender to palpation, nondistended, no masses, no exquisite tenderness with exam, without guarding or rebound. MSK: moves all extremities, ambulatory w/steady gait, neurovascularly intact, no weakness, left flank tenderness him to palpation Skin: brisk capillary refill, no rash, no erythema Neuro: normal speech and cognition, A&O x3, normal tone Psych: mental status is grossly normal, congruent mood, normal affect, pleasant and cooperative Initial Vital Signs Initial Vital Signs: Vital Signs Temperature 98.6 F 02/19/22 09:07 Pulse Rate 67 02/19/22 09:07 Respiratory Rate 20 02/19/22 09:07 Blood Pressure 174/71 H 02/19/22 09:07 Pulse Oximetry 98 02/19/22 09:07 <Ella Goodwin DO - Last Filed: 02/20/22 19:02> Initial Vital Signs Initial Vital Signs: Vital Signs Temperature 98.6 F 02/19/22 09:07 Pulse Rate 67 02/19/22 09:07 Respiratory Rate 20 02/19/22 09:07 Blood Pressure 174/71 H 02/19/22 09:07 Pulse Oximetry 98 02/19/22 09:07 Course <NAOMY Hightower - Last Filed: 02/19/22 15:13> Orders Ordered: Discontinued Medications Ketorolac Tromethamine (Ketorolac 30 Mg/Ml Vial) 15 mg IV NOW ONE Stop: 02/19/22 12:54 Last Admin: 02/19/22 13:31 Dose: 15 mg Documented by: CAROLANN Lidocaine (Lidocaine Patch 1 Each Adh..Patch) 2 each TOP NOW ONE Stop: 02/19/22 13:19 Last Admin: 02/19/22 13:31 Dose: 1 each Documented by: CAROLANN Oxycodone/Acetaminophen (Oxycodone/Apap 5/325 Prepack) 1 bottle MISC SEEINSTR ONE Stop: 02/19/22 13:19 Last Admin: 02/19/22 13:30 Dose: Not Given Documented by: CAROLANN Tramadol HCl (Tramadol 50 Mg Tablet) 50 mg PO NOW ONE Stop: 02/19/22 12:34 Last Admin: 02/19/22 13:27 Dose: Not Given Documented by: CAROLANN Vital Signs Vital signs: Vital Signs - 8 hr 02/19/22 09:07 02/19/22 13:46 Temperature 98.6 F Pulse Rate 67 66 Respiratory Rate 20 18 Blood Pressure 174/71 H 162/87 H Pulse Oximetry 98 96 <Ella Goodwin DO - Last Filed: 02/20/22 19:02> Orders Ordered: Discontinued Medications Ketorolac Tromethamine (Ketorolac 30 Mg/Ml Vial) 15 mg IV NOW ONE Stop: 02/19/22 12:54 Last Admin: 02/19/22 13:31 Dose: 15 mg Documented by: CAROLANN Lidocaine (Lidocaine Patch 1 Each Adh..Patch) 2 each TOP NOW ONE Stop: 02/19/22 13:19 Last Admin: 02/19/22 13:31 Dose: 1 each Documented by: CAROLANN Oxycodone/Acetaminophen (Oxycodone/Apap 5/325 Prepack) 1 bottle MISC SEEINSTR ONE Stop: 02/19/22 13:19 Last Admin: 02/19/22 13:30 Dose: Not Given Documented by: CAROLANN Tramadol HCl (Tramadol 50 Mg Tablet) 50 mg PO NOW ONE Stop: 02/19/22 12:34 Last Admin: 02/19/22 13:27 Dose: Not Given Documented by: CAROLANN Vital Signs Vital signs: Vital Signs - 8 hr 02/19/22 09:07 02/19/22 13:46 Temperature 98.6 F Pulse Rate 67 66 Respiratory Rate 20 18 Blood Pressure 174/71 H 162/87 H Pulse Oximetry 98 96 MDM - Abdominal Pain <NAOMY Hightower - Last Filed: 02/19/22 15:13> Lab Data Result diagrams: 02/19/22 10:55 02/19/22 10:55 Labs: Lab Results 02/19/22 02/19/22 02/19/22 Range/Units 08:42 10:55 10:55 WBC 8.5 (4.5-11.0) X10^3/uL RBC 4.64 (4.0-5.2) X10^6/uL Hgb 13.3 (12.0-16.0) g/dL Hct 39.2 (36-46) % MCV 84.5 (80-100) fL MCH 28.7 (26-34) PG MCHC 34.0 (30-36) % RDW 13.7 (11.6-14.8) % Plt Count 269 (150-400) X10^3/uL Neut % (Auto) 57.8 (50-75) % Lymph % (Auto) 29.9 (25-40) % [place] % (Auto) 9.1 (3-14) % Eos % (Auto) 2.0 (2-4) % Baso % (Auto) 1.2 (0-2) % Neut # (Auto) 4900 (7183-0290) /uL Lymph # (Auto) 2500 (7820-7119) /uL [place] # (Auto) 800 (0-900) /uL Eos # (Auto) 200 (0-450) /uL Baso # (Auto) 100 (0-100) /uL Sodium 143 (137-145) mmol/L Potassium 4.3 (3.4-5.1) mmol/L Chloride 109 H (98-107) mmol/L Carbon Dioxide 28 (22-32) mmol/L BUN 10 (7-17) mg/dL Creatinine 0.94 (0.52-1.04) mg/dL Estimated GFR > 60 (>60) mL/min BUN/Creatinine Ratio 10.6 (6-22) Glucose 121 H (70-100) mg/dL Calcium 9.0 (8.4-10.2) mg/dL Total Bilirubin 0.4 (0.2-1.3) mg/dL AST 21 (14-36) IU/L ALT 15 (<35) IU/L Alkaline Phosphatase 83 (38-126) U/L Total Protein 8.0 (6.3-8.2) g/dL Albumin 4.2 (3.5-5.0) g/dL Globulin 3.8 (1.7-4.1) g/dL Albumin/Globulin Ratio 1.1 (1.0-2.8) Lipase 86 (23-300) U/L Urine Color Yellow Urine Appearance Sl cloudy Urine pH 6.0 (4.5-8.0) Ur Specific [place] 1.010 (1.000-1.035) Urine Protein 1+ H (Negative) Urine Glucose (UA) Negative (Negative) g/dL Urine Ketones Negative (NEGATIVE) Urine Occult Blood 3+ H (Negative) Urine Nitrate Negative (Negative) Urine Bilirubin Negative (NEGATIVE) Urine Urobilinogen 0.2 (0.2) E.U./dL Ur Leukocyte Esterase 1+ H (NEGATIVE) Urine RBC 30-100/hpf H (0-5/HPF) Urine WBC 1-5/hpf (0-5/HPF) Urine Bacteria None seen (None) Ur Culture Indicated? Specimen cultured Urine Test (Negative) 02/19/22 Range/Units 10:57 WBC (4.5-11.0) X10^3/uL RBC (4.0-5.2) X10^6/uL Hgb (12.0-16.0) g/dL Hct (36-46) % MCV (80-100) fL MCH (26-34) PG MCHC (30-36) % RDW (11.6-14.8) % Plt Count (150-400) X10^3/uL Neut % (Auto) (50-75) % Lymph % (Auto) (25-40) % [place] % (Auto) (3-14) % Eos % (Auto) (2-4) % Baso % (Auto) (0-2) % Neut # (Auto) (8403-9891) /uL Lymph # (Auto) (4862-3812) /uL [place] # (Auto) (0-900) /uL Eos # (Auto) (0-450) /uL Baso # (Auto) (0-100) /uL Sodium (137-145) mmol/L Potassium (3.4-5.1) mmol/L Chloride (98-107) mmol/L Carbon Dioxide (22-32) mmol/L BUN (7-17) mg/dL Creatinine (0.52-1.04) mg/dL Estimated GFR (>60) mL/min BUN/Creatinine Ratio (6-22) Glucose (70-100) mg/dL Calcium (8.4-10.2) mg/dL Total Bilirubin (0.2-1.3) mg/dL AST (14-36) IU/L ALT (<35) IU/L Alkaline Phosphatase (38-126) U/L Total Protein (6.3-8.2) g/dL Albumin (3.5-5.0) g/dL Globulin (1.7-4.1) g/dL Albumin/Globulin Ratio (1.0-2.8) Lipase (23-300) U/L Urine Color Urine Appearance Urine pH (4.5-8.0) Ur Specific [place] (1.000-1.035) Urine Protein (Negative) Urine Glucose (UA) (Negative) g/dL Urine Ketones (NEGATIVE) Urine Occult Blood (Negative) Urine Nitrate (Negative) Urine Bilirubin (NEGATIVE) Urine Urobilinogen (0.2) E.U./dL Ur Leukocyte Esterase (NEGATIVE) Urine RBC (0-5/HPF) Urine WBC (0-5/HPF) Urine Bacteria (None) Ur Culture Indicated? Urine Test Negative (Negative) Imaging Data CT scan - abdomen/pelvis: Radiologist's Impression: PROCEDURE:? CT ABDOMEN PELVIS W CON ? INDICATIONS:? pain after ureteral stent ? TECHNIQUE:? After the administration of intravenous contrast, axial sections acquired from the lung bases to the pubic symphysis.? Coronal and sagittal reformats were performed.? For radiation dose reduction, the following was used:? automated exposure control, adjustment of mA and/or kV according to patient size.? ? COMPARISON:? [facility], CT, CT ABDOMEN PELVIS WO/W CON, 10/05/2021, 9:33. ? FINDINGS:? Image quality:? Excellent.? ? Lung bases:? Bibasilar dependent atelectasis are seen posteriorly.. Heart:? No significant findings. ? ABDOMEN: Liver:? There is hepatomegaly.? Mild hepatic steatosis is seen, no discrete hepatic lesion..? ? Gallbladder:? Gallbladder is surgically absent. Biliary ducts:? Unremarkable.? ? Pancreas:? Unremarkable.? ? Spleen:? 2 tiny hypodense areas are noted within spleen parenchyma unchanged from prior study and likely represent tiny cysts. Adrenal Glands:? Unremarkable.? ? Kidneys and Ureters:? There is interval placement of a left-sided ureteral stent.? Moderate left-sided hydronephrosis extending to the level of left UPJ is seen.? Nonobstructing stone in lower pole of left kidney is noted and measures 1 cm in size and 440 Hounsfield unit in density.? Mild left perinephric fat stranding is seen.? No left-sided hydroureter.? No right-sided renal stone or hydronephrosis. ? Stomach and Bowel:? Stomach, small bowel loops, and colon are unremarkable.? Peritoneum:? No abnormal intraperitoneal fluid.? No free air.? ? Ventral Wall: ? No hernias.? Abdominal Nodes:? No retroperitoneal or mesenteric adenopathy by size criteria.? Vessels:? Aorta and inferior vena cava are normal in size.? ? PELVIS: Pelvic Organs:? Unremarkable.? ? Bladder:? Unremarkable.? ? Pelvic Nodes: No enlarged lymph nodes.? Miscellaneous: No hernias are seen. ? ? ? Bones:? No suspicious bony lesion.? No acute vertebral body compression fracture.? Degenerative disc disease in lower lumbar spine at L4-5 and L5-S1 levels are seen. ? ? IMPRESSION:? 1. Interval placement of left-sided ureteral stent with moderate left-sided hydronephrosis and perinephric fat stranding extending to the level of left UPJ concerning for stent malfunction suggest clinical correlation.? Nonobstructing stone in lower pole of left kidney.? No right-sided hydronephrosis or hydroureter.? Normal appearing urinary bladder. 2. No bowel obstruction or abnormal bowel wall thickening.? No free fluid or free air. 3. Hepatomegaly and hepatic steatosis.? ? ? Dictated by: Andi Hodges M.D. on 02/19/2022 at 11:55 ? ? Approved by: Andi Hodges M.D. on 02/19/2022 at 12:04 ? [facility] Narrative Medical decision making narrative: This is a 51-year-old female presents to the emergency department for left flank pain status post ureteral stent placement [address] Thornton from [facility]. CT obtained today which shows interval placement of left-sided ureteral stent with moderate left-sided hydronephrosis and perinephric fat stranding extend to the level of the left UPJ concerning for stent malfunction. This was only significant finding on the CT, her lab work a no anemia, electrolytes are within normal range, lipase is 86, creatinine is 0.94, GFR is over 60, BUN creatinine ratio is 10.6, aligns with her baseline. UA shows protein, blood, 1+ leukocytes, it was sent for culture, patient denies dysuria, pelvic pain, urinary urgency or frequency. Discussion with Dr. Thornton from [facility] who recommends pain control, reassures me that her CT does not appear dangerous and the hydronephrosis is ongoing from her procedure. She will call the office and try to move patient's upcoming appointment sooner instead of 03/01/2022. states that patient will need a cystoscopy to obtain the ureteral stent. Patient is afebrile, without tachycardia, tachypnea, and her pain was well controlled with Toradol, she is given a prescription of Percocet to go with her Toradol at home, instructed to take these with food and water . She lives on [facility] a cane here to hopefully have her stent removed but due to the nature of this and her primary urologist scheduling this for her in the office, patient understands she does not to have this urgently removed today. She was given strict return precautions for the emergency department. No peritoneal signs on abdominal exam. Patient remains p.o. tolerant. Serial abdominal exam without increase in abdominal pain. Given history and exam, low suspicion for acute abdominal process, such as acute cholecystitis, pancreatitis, perforated viscus, atypical appendicitis, colitis, diverticulitis or torsion. Extensive conversation about ER return precautions and need for close follow-up. Patient is appropriate and amenable to discharge home. Vital signs are stable on repeat examination is unremarkable. Patient has been informed of results. Patient has been given strict return to ER precautions for any new or worsening symptoms. Patient understands to follow up closely with outpatient providers as instructed. Patient understands plan and agrees to discharge home. All questions and concerns answered at this time. <Ella Goodwin, DO - Last Filed: 02/20/22 19:02> Lab Data Labs: Lab Results 02/19/22 02/19/22 02/19/22 Range/Units 08:42 10:55 10:55 WBC 8.5 (4.5-11.0) X10^3/uL RBC 4.64 (4.0-5.2) X10^6/uL Hgb 13.3 (12.0-16.0) g/dL Hct 39.2 (36-46) % MCV 84.5 (80-100) fL MCH 28.7 (26-34) PG MCHC 34.0 (30-36) % RDW 13.7 (11.6-14.8) % Plt Count 269 (150-400) X10^3/uL Neut % (Auto) 57.8 (50-75) % Lymph % (Auto) 29.9 (25-40) % [place] % (Auto) 9.1 (3-14) % Eos % (Auto) 2.0 (2-4) % Baso % (Auto) 1.2 (0-2) % Neut # (Auto) 4900 (4156-0216) /uL Lymph # (Auto) 2500 (1891-6705) /uL [place] # (Auto) 800 (0-900) /uL Eos # (Auto) 200 (0-450) /uL Baso # (Auto) 100 (0-100) /uL Sodium 143 (137-145) mmol/L Potassium 4.3 (3.4-5.1) mmol/L Chloride 109 H (98-107) mmol/L Carbon Dioxide 28 (22-32) mmol/L BUN 10 (7-17) mg/dL Creatinine 0.94 (0.52-1.04) mg/dL Estimated GFR > 60 (>60) mL/min BUN/Creatinine Ratio 10.6 (6-22) Glucose 121 H (70-100) mg/dL Calcium 9.0 (8.4-10.2) mg/dL Total Bilirubin 0.4 (0.2-1.3) mg/dL AST 21 (14-36) IU/L ALT 15 (<35) IU/L Alkaline Phosphatase 83 (38-126) U/L Total Protein 8.0 (6.3-8.2) g/dL Albumin 4.2 (3.5-5.0) g/dL Globulin 3.8 (1.7-4.1) g/dL Albumin/Globulin Ratio 1.1 (1.0-2.8) Lipase 86 (23-300) U/L Urine Color Yellow Urine Appearance Sl cloudy Urine pH 6.0 (4.5-8.0) Ur Specific [place] 1.010 (1.000-1.035) Urine Protein 1+ H (Negative) Urine Glucose (UA) Negative (Negative) g/dL Urine Ketones Negative (NEGATIVE) Urine Occult Blood 3+ H (Negative) Urine Nitrate Negative (Negative) Urine Bilirubin Negative (NEGATIVE) Urine Urobilinogen 0.2 (0.2) E.U./dL Ur Leukocyte Esterase 1+ H (NEGATIVE) Urine RBC 30-100/hpf H (0-5/HPF) Urine WBC 1-5/hpf (0-5/HPF) Urine Bacteria None seen (None) Ur Culture Indicated? Specimen cultured Urine Test (Negative) 02/19/22 Range/Units 10:57 WBC (4.5-11.0) X10^3/uL RBC (4.0-5.2) X10^6/uL Hgb (12.0-16.0) g/dL Hct (36-46) % MCV (80-100) fL MCH (26-34) PG MCHC (30-36) % RDW (11.6-14.8) % Plt Count (150-400) X10^3/uL Neut % (Auto) (50-75) % Lymph % (Auto) (25-40) % [place] % (Auto) (3-14) % Eos % (Auto) (2-4) % Baso % (Auto) (0-2) % Neut # (Auto) (4888-8042) /uL Lymph # (Auto) (9415-1522) /uL [place] # (Auto) (0-900) /uL Eos # (Auto) (0-450) /uL Baso # (Auto) (0-100) /uL Sodium (137-145) mmol/L Potassium (3.4-5.1) mmol/L Chloride (98-107) mmol/L Carbon Dioxide (22-32) mmol/L BUN (7-17) mg/dL Creatinine (0.52-1.04) mg/dL Estimated GFR (>60) mL/min BUN/Creatinine Ratio (6-22) Glucose (70-100) mg/dL Calcium (8.4-10.2) mg/dL Total Bilirubin (0.2-1.3) mg/dL AST (14-36) IU/L ALT (<35) IU/L Alkaline Phosphatase (38-126) U/L Total Protein (6.3-8.2) g/dL Albumin (3.5-5.0) g/dL Globulin (1.7-4.1) g/dL Albumin/Globulin Ratio (1.0-2.8) Lipase (23-300) U/L Urine Color Urine Appearance Urine pH (4.5-8.0) Ur Specific [place] (1.000-1.035) Urine Protein (Negative) Urine Glucose (UA) (Negative) g/dL Urine Ketones (NEGATIVE) Urine Occult Blood (Negative) Urine Nitrate (Negative) Urine Bilirubin (NEGATIVE) Urine Urobilinogen (0.2) E.U./dL Ur Leukocyte Esterase (NEGATIVE) Urine RBC (0-5/HPF) Urine WBC (0-5/HPF) Urine Bacteria (None) Ur Culture Indicated? Urine Test Negative (Negative) Discharge Plan Departure Patient Disposition: Home Clinical Impression: Acute flank pain Hydronephrosis Qualifiers: Hydronephrosis type: unspecified Qualified Code(s): N13.30 - Unspecified hydronephrosis Instructions: DI for Ureteral Stent Placement, DI for Ureteroscopy Activity Restrictions/Additional Instructions: *You have been diagnosed with malfunction of your ureteral stent with associated inflammation. At this point, there is no systemic sign of infection, no bleeding around the site and it is not causing obstruction however pain is going to be a challenge for you. I am sorry for that. Dr. Thornton adults that the office will call you and try to get you in sooner than the 28th. Please use Toradol every 6 hours as needed for your pain with food and water, you can take Percocet every 6 hours as needed for food and water but please take something to soften your Stool. Thank you for trusting us with your care, I hope that you feel better soon, please return if you develop a fever, nausea vomiting, any worsening of her pain, or go directly to [facility] to be seen by the on-call urologist on your team. I am sorry that we were able to remove this for you but please be reassured that the urologist states that it is not dangerous. Please stay hydrated, remember to eat food with medications, was a pleasure to meet you. CONTROLLED SUBSTANCE DISCHARGE (Narcotic/benzodiazepine/Flexeril/Phenergan) 1. You have been prescribed narcotic medications, it does have acetaminophen/Tylenol/paracetamol in it, DO NOT TAKE MORE THAN 4,00mg in 24 hours of Tylenol. *Tramadol does not contain tylenol. 2. Please understand that we cannot provide further refills of narcotics, benzodiazepines or controlled substances through the ED and her pain management will need to be through your provider. 3. While on these medications you cannot drive or operate heavy machinery. 4. You cannot sign legal documents or perform any duties such as this. 5. As long as you are taking opiate pain medications he should also be taking a stool softener such as Colace, Dulcolax, MiraLAX or prune juice, to help avoid constipation. *What to do: *Please continue to take your regular medications as directed. [x] New medication prescriptions sent to your pharmacy: [[facility]] [ ] New medication written as a paper prescription [ ] No new medications given *Please follow up with your primary care provider in 2-3 days, call for an appointment. Let them know you were seen in the Emergency Department and that we asked that you be seen for follow-up. We will electronically transmit a record of today's note if your PCP is in our system *If you do not have a primary care provider please contact [phone] to establish care with one of the [facility] primary care providers. *Return to Emergency Department if you should have any new, worsening or concerning symptoms, such as [fever greater than 101F, chills, worsening pain, persistent vomiting or other bothersome symptoms] Prescriptions: New oxycodone-acetaminophen [Percocet] 5-325 mg tablet 1 tab PO Q8H PRN (Reason: pain) Qty: 14 0RF ketorolac 10 mg tablet 10 mg PO Q8H PRN (Reason: pain) Qty: 30 0RF Rx Instructions: with food and water lidocaine [Lidoderm] 5 % adhesive patch,medicated 1 patch topical DAILY PRN (Reason: pain) Qty: 15 0RF Rx Instructions: leave on most painful area for up to 12 hrs No Action naproxen [Naprosyn] 500 mg tablet 500 mg PO BID PRN (Reason: pain) Qty: 60 1RF tramadol 50 mg tablet 50 mg PO BID PRN (Reason: pain) Qty: 30 0RF gabapentin 300 mg capsule 2,100 mg PO DAILY 0RF Label Comments: 2 tabs am, noon, 3 tabs hs cetirizine [Aller-Domenic] 10 mg tablet 10 mg PO DAILY 0RF omega 3-zyf-ujz-fish oil [Fish Oil] 1,000 mg (120 mg-180 mg) capsule 1,400 mg PO BEDTIME 0RF Label Comments: 1400 MG liraglutide 0.6 mg/0.1 mL (18 mg/3 mL) pen injector 1.2 mg SUBCUT DAILY 0RF Rx Instructions: inject 0.6 mg under the skin daily for 7 days. tgeb 1.2 mg daily. fluticasone propionate 50 mcg/actuation spray,suspension 2 spray intranasal DAILY 0RF Rx Instructions: administer into each nostril indomethacin 50 mg capsule 50 mg PO TID 0RF Rx Instructions: administer with food or milk methocarbamol 500 mg tablet 500 mg PO QID PRN0RF Rx Instructions: TAKE 1-2 TABLETS (500-1,000 MG) BY MOUTH 4 TIMES A DAY NEEDED FOR MUSCLE SPASM. albuterol sulfate 90 mcg/actuation HFA aerosol inhaler 2 puff inhalation Q4-6H PRN0RF bupropion HCl 150 mg tablet extended release 24 hr 150 mg PO QAM 0RF atorvastatin 10 mg tablet 10 mg PO DAILY 0RF aripiprazole 10 mg tablet 10 mg PO DAILY 0RF oxybutynin chloride 5 mg tablet 5 mg PO TID PRN0RF amlodipine 5 mg tablet 5 mg PO DAILY 0RF Referrals: Sheila Thornton MD [Non-Staff] - 5-7 days Amor Mccullough MD [Primary Care Provider] - <Ella Goodwin DO - Last Filed: 02/20/22 19:02> Cosign ED Attending Cosignature Attestation: I was immediately available in the department for consultation. Documentation has been reviewed.
[2022-02-19] MEDS: KETOROLAC 30 MG/ML VIAL 15 MG IV (13:31)
[2022-02-19] MEDS: LIDOCAINE PATCH 1 EACH ADH..PATCH 2 EACH TOP (13:31)
[2022-02-19 13:46] VITALS: BP 162/87; PULSE 66; RESP 18; O2SAT 96
== END 2022-02-19 13:46 | disposition home or self-care (01) ==
PROVIDERS: Emergency Medicine; Emergency Provider Nurse Practitioner Critical Care Medicine; Family Provider Family Medicine; PCP Family Medicine
DX: R10.9 Unspecified abdominal pain (principal); N13.30 Unspecified hydronephrosis; Z88.5 Allergy status to narcotic agent
CPT/HCPCS: 74177; 80053; 81001; 81025; 83690; 85025; 87086; 96374; 99284; J1885; Q9967

== ENCOUNTER → 2022-07-19 09:12 | Outpatient (CLI) | payer OTHER, MEDICAID, SELFPAY ==
--- NOTE | 2022-07-19 09:14 | DI.US.S_ITS ---
PROCEDURE: US RENAL COMPLETE INDICATIONS: Calculus of kidney TECHNIQUE: Real-time scanning was performed of the kidneys and bladder, with image documentation. COMPARISON: [facility], CR, XR RETROGRADE UROGRAPHY, 02/07/2022, 15:03. [facility], CT, CT ABDOMEN PELVIS W CON, 02/19/2022, 11:37. FINDINGS: Kidneys: Kidneys are normal in size. Right kidney measures 12.3 cm long; left kidney measures 12.4 cm long. Right renal cortical thickness is 1.5 cm; left renal cortical thickness is 2.0 cm. Renal cortical echotexture is normal. There is a 6 mm stone in the inferior pole of the left kidney. No hydronephrosis. A 1.9 x 1.5 x 2.0 cm parapelvic cyst is seen in left kidney. No suspicious solid mass lesions. Bladder: Pre-void bladder volume is 401 mL. Post-void residual is 0 mL. Pre-void images demonstrate no intraluminal masses or stones. On pre-void images, both ureteral jets are noted with color Doppler interrogation. (Of note, ureteral jets may not be detectable in up to 25% of cases due to insufficient differences in specific gravity between ureteral and bladder urine). Miscellaneous: No free pelvic fluid. IMPRESSION: 1. A 6 mm nonobstructive stone in the inferior pole of the left kidney. No hydronephrosis. 2. A 2 cm parapelvic cyst in left kidney. Dictated by: Onofre Unger M.D. on 07/19/2022 at 12:45 Approved by: Onofre Unger M.D. on 07/19/2022 at 12:58
== END ==
PROVIDERS: Family Provider Family Medicine; PCP Family Medicine; Referring Provider Urology; Visit Provider Urology
DX: N20.0 Calculus of kidney (principal); Q61.01 Congenital single renal cyst
CPT/HCPCS: 76770

== ENCOUNTER 2024-01-28 04:10 | Emergency (ER) | payer OTHER, MEDICAID, SELFPAY ==
[2024-01-28] VITALS (7 sets, daily range): BP systolic 153–179; BP diastolic 62–84; PULSE 71–84; RESP 16–20; TEMP 36.4; O2SAT 95–97; BMI 53.1
--- NOTE | 2024-01-28 04:12 | DI.CT.S_ITS ---
PROCEDURE: CT ABDOMEN PELVIS W CON INDICATIONS: LLQ abd pain TECHNIQUE: After the administration of intravenous contrast, axial sections acquired from the lung bases to the pubic symphysis. Coronal and sagittal reformats were performed. For radiation dose reduction, the following was used: automated exposure control, adjustment of mA and/or kV according to patient size. COMPARISON: [facility], CT, CT ABDOMEN PELVIS W CON, 02/19/2022, 11:37. FINDINGS: Image quality: Diagnostic Lower chest: Scattered scarring and atelectasis. Small right Bochdalek's hernia. Liver: Possible steatosis. Gallbladder and biliary system: Gallbladder is absent. Nondilated biliary system Pancreas: No ductal dilation Spleen: Nonenlarged Adrenals: No discrete nodules Kidneys: Sjyj-er-byzxscsm left pelvocaliectasis. Mild right pelvocaliectasis. A 1 millimeters stone is seen in the region of the right UVJ. Bilateral perinephric and periureteral mild fat stranding. Multiple 3-5 millimeter cluster of stone seen in the left lower pole. Vessels and lymph nodes: The main portal vein is patent. No abdominal aortic aneurysm. No pathologic lymph nodes by size criteria. Bowel and peritoneum: No evidence of small bowel obstruction. No pathologic ascites. No abscess. The appendix appears nondilated. Body wall: Unremarkable Pelvis: Bladder is unremarkable. Uterus is absent. Bones: Degenerative changes. IMPRESSION: Mild to moderate left and mild right pelvocaliectasis. 1-2 millimeter right UVJ stone is seen. No obstructing calculus seen on the left. Nonobstructing calculi are seen in the left kidney lower pole. Mild fat stranding surrounding the kidneys and ureters, nonspecific, correlate with urinalysis for superimposed infection. Other findings as above. No significant discrepancy from prelim report. (please note the prelim report stated UPJ, this is a typographical error meant to say UVJ) Dictated by: Isrrael Faith M.D. on 01/28/2024 at 7:52 Approved by: Isrrael Faith M.D. on 01/28/2024 at 8:00
--- NOTE | 2024-01-28 04:15 | ED.GENADULT ---
HPI - General Adult General Chief complaint: Abdominal Pain Stated complaint: LLQ N/V/D Time Seen by Provider: 01/28/24 04:11 Source: patient and EMS Mode of arrival: EMS Limitations: no limitations History of Present Illness HPI narrative: Patient is a 53-year-old female who is brought in by airlift for evaluation of 3 episodes of diarrhea last night, nausea, abdominal discomfort. Initially reported as left lower quadrant abdominal pain however the patient reports bilateral lower abdominal pain and lower back pain. She has had a kidney stone in the past but when she had the kidney stone and felt nothing like this. No fevers. No recent travel. She did receive fentanyl and Dilaudid prior to arrival. She reports no urinary symptoms. No blood in her stool. Related Data Home Medications Medication Instructions Recorded Confirmed cetirizine 10 mg tablet (Aller-Domenic) 10 mg PO DAILY 04/10/18 08/16/21 gabapentin 300 mg capsule 2,100 mg PO DAILY 04/10/18 08/16/21 omega 0-gld-lrd-fish oil 1,000 mg 1,400 mg PO BEDTIME 04/10/18 08/16/21 (120 mg-180 mg) capsule (Fish Oil) aripiprazole 10 mg tablet 10 mg PO DAILY 02/12/19 08/16/21 amlodipine 5 mg tablet 5 mg PO DAILY 06/17/19 08/16/21 oxybutynin chloride 5 mg tablet 5 mg PO TID PRN 06/17/19 08/16/21 albuterol sulfate 90 mcg/actuation 2 puff inhalation Q4-6H PRN 05/22/21 08/16/21 aerosol inhaler atorvastatin 10 mg tablet 10 mg PO DAILY 05/22/21 08/16/21 bupropion HCl 150 mg 24 hr tablet, 150 mg PO QAM 05/22/21 08/16/21 extended release fluticasone propionate 50 2 spray intranasal DAILY 05/22/21 08/16/21 mcg/actuation nasal spray,suspension indomethacin 50 mg capsule 50 mg PO TID 05/22/21 08/16/21 liraglutide 0.6 mg/0.1 mL (18 mg/3 1.2 mg SUBCUT DAILY 05/22/21 08/16/21 mL) subcutaneous pen injector methocarbamol 500 mg tablet 500 mg PO QID PRN 05/22/21 08/16/21 Previous Rx's Medication Instructions Recorded naproxen 500 mg tablet (Naprosyn) 500 mg PO BID PRN pain #60 tabs 04/11/21 tramadol 50 mg tablet 50 mg PO BID PRN pain #30 tabs 04/11/21 ketorolac 10 mg tablet 10 mg PO Q8H PRN pain #30 tabs 02/19/22 lidocaine 5 % topical patch 1 patch topical DAILY PRN pain #15 02/19/22 (Lidoderm) ea oxycodone-acetaminophen 5 mg-325 1 tab PO Q8H PRN pain #14 tabs 02/19/22 mg tablet (Percocet) dicyclomine 10 mg capsule 10 mg PO QID PRN abdominal pain 01/28/24 #20 caps Allergies Allergy/AdvReac Type Severity Reaction Status Date / Time duloxetine [DULOXETINE] Allergy Severe SOB Verified 02/19/22 09:07 hydrocodone [HYDROCODONE] Allergy Severe HEADACHE Verified 02/19/22 09:07 VOMITING Penicillins [PENICILLINS] Allergy Intermediate RASH Verified 02/19/22 09:07 Review of Systems Constitutional Constitutional: Reports system reviewed and no additional complaints, except as documented Gastrointestinal Gastrointestinal: Reports system reviewed and no additional complaints, except as documented Genitourinary Genitourinary: Reports system reviewed and no additional complaints, except as documented Musculoskeletal Musculoskeletal: Reports system reviewed and no additional complaints, except as documented Integumentary/Breasts Skin/Breast: Reports system reviewed and no additional complaints, except as documented Neurologic Neurologic: Reports system reviewed and no additional complaints, except as documented Patient History Medical History [place] attendant associated with adverse incidents Acne PTSD (post-traumatic stress disorder) Restless leg syndrome (~1998) History of recurrent ear infection Irregular menstrual cycle Abnormal Pap smear of cervix (~1995) Irritable bowel syndrome (~2000) MCL sprain of left knee Facet arthropathy, lumbar Fatigue Excessive daytime sleepiness Morbid obesity with body mass index (BMI) of 50.0 to 59.9 in adult Obstructive sleep apnea (~1998) Facet arthropathy, lumbosacral Arthritis Eczema Depression Anxiety Bipolar 1 disorder Migraines Nausea & vomiting Hyperglycemia Difficulty swallowing Hyperlipidemia Disc degeneration Fibromyalgia Surgical History (Updated 05/23/21 @ 10:15 by Keith Jorgensen MD) Anesthesia History of cholecystectomy (~2018) S/P hysterectomy H/O: hysterectomy (~2000) Previous section (~1992) Family History (Updated 03/06/21 @ 18:56 by Noa Varela) Grandmother Hypertension Breast cancer Hyperlipidemia Father Hypertension Gall stone Hyperlipidemia Mother Mental health problem Fibromyalgia Social History marital status: unmarried,living together details: Lives with boyfriend number of children: 1 household members: significant other and children occupational status: employed 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 Smoking Status: Never smoker alcohol intake: current substance use type: other Smoking Status: Never smoker Substance Use Type: marijuana Exam Initial Vital Signs Initial Vital Signs: Vital Signs Temperature 97.5 F L 01/28/24 04:27 Pulse Rate 77 01/28/24 04:27 Respiratory Rate 20 01/28/24 04:27 Blood Pressure 179/84 H 01/28/24 04:27 Pulse Oximetry 95 01/28/24 04:27 Oxygen Delivery Method Room Air 01/28/24 04:27 HENMT Head: normal to inspection and normocephalic Resp Effort & Inspection: normal respiratory effort Cardio Rate: regular rate GI Inspection: normal to inspection and non-distended Palpation: soft, No firm, No guarding and tender (Lower abdomen) Neuro General: patient alert and patient awake Extrem General: capillary refill normal Course Orders Ordered: ED Orders 01/28/24 04:12 CT abdomen pelvis w con Stat 01/28/24 04:40 Complete Blood Count AUTO DIFF Stat Comprehensive Metabolic Panel Stat Lipase Stat 01/28/24 04:50 Urine Culture Stat Urine Microscopic Stat Discontinued Medications Dicyclomine HCl (Dicyclomine 10 Mg Capsule) 10 mg PO NOW ONE Stop: 01/28/24 06:00 Last Admin: 01/28/24 06:02 Dose: 10 mg Documented By: SB Sodium Chloride (Normal Saline 0.9%) 1,000 mls @ 1,000 mls/hr IV BOLUS ONE Stop: 01/28/24 05:10 Last Admin: 01/28/24 04:58 Dose: 1,000 mls/hr Documented By: SB Ketorolac Tromethamine (Ketorolac 30 Mg/Ml Vial) 30 mg IV NOW ONE Stop: 01/28/24 05:19 Last Admin: 01/28/24 05:26 Dose: 30 mg Documented By: ASIA Vital Signs Vital signs: Vital Signs - 8 hr 01/28/24 04:27 01/28/24 04:32 01/28/24 05:00 Temperature 97.5 F L Pulse Rate 77 73 72 Respiratory Rate 20 Blood Pressure 179/84 H Pulse Oximetry 95 97 95 Oxygen Delivery Method Room Air Room Air Room Air Medical Decision Making Medical Records Medical records reviewed: Yes I reviewed the patient's medical records. Lab Data Lab results reviewed: Yes I reviewed the patient's lab results. 01/28/24 04:40 01/28/24 04:40 Labs: Lab Results 01/28/24 01/28/24 Range/Units 04:40 04:50 WBC 10.7 (4.5-11.0) X10^3/uL RBC 4.57 (4.0-5.2) X10^6/uL Hgb 13.3 (12.0-16.0) g/dL Hct 39.3 (36-46) % MCV 86.0 (80-100) fL MCH 29.1 (26-34) PG MCHC 33.8 (30-36) % RDW 13.7 (11.6-14.8) % Plt Count 275 (150-400) X10^3/uL Neut % (Auto) 78.8 H (50-75) % Lymph % (Auto) 13.9 L (25-40) % [place] % (Auto) 6.3 (3-14) % Eos % (Auto) 0.3 L (2-4) % Baso % (Auto) 0.7 (0-2) % Neut # (Auto) 8400 H (4802-7685) /uL Lymph # (Auto) 1500 (1083-0581) /uL [place] # (Auto) 700 (0-900) /uL Eos # (Auto) 0 (0-450) /uL Baso # (Auto) 100 (0-100) /uL Sodium 139 (137-145) mmol/L Potassium 4.1 (3.4-5.1) mmol/L Chloride 106 (98-107) mmol/L Carbon Dioxide 26 (22-32) mmol/L BUN 20 H (7-17) mg/dL Creatinine 0.91 (0.52-1.04) mg/dL Estimated GFR > 60 (>60) mL/min BUN/Creatinine Ratio 22.0 (6-22) Glucose 133 H (70-100) mg/dL Calcium 9.5 (8.4-10.2) mg/dL Total Bilirubin 0.7 (0.2-1.3) mg/dL AST 34 (14-36) IU/L ALT 25 (<35) IU/L Alkaline Phosphatase 82 (38-126) U/L Total Protein 8.2 (6.3-8.2) g/dL Albumin 4.3 (3.5-5.0) g/dL Globulin 3.9 (1.7-4.1) g/dL Albumin/Globulin Ratio 1.1 (1.0-2.8) Lipase 63 (23-300) U/L Urine RBC None seen (0-5/HPF) Urine WBC None seen (0-5/HPF) Ur Squamous Epith Cells 0-1 /hpf (0-5/HPF) Urine Bacteria Occasional (0-1) (None) Ur Culture Indicated? Cult not indicated Vol Urine Centrifuged 10ml (spun) Urine Dip Bedside Urine Glucose Negative Bedside Urine Bilirubin - Negative Bedside Urine Ketone - Negative Urine Specific [place] 1.015 Bedside Urine Occult Blood + Bedside Urine pH 6.5 Bedside Urine Protein - Negative Bedside Urine Urobilinogen - Negative Bedside Urine Nitrite - Negative Bedside Urine Leukocytes - Negative Esterase Point of care testing: Urine Dip Bedside Urine Glucose Negative Bedside Urine Bilirubin - Negative Bedside Urine Ketone - Negative Urine Specific [place] 1.015 Bedside Urine Occult Blood + Bedside Urine pH 6.5 Bedside Urine Protein - Negative Bedside Urine Urobilinogen - Negative Bedside Urine Nitrite - Negative Bedside Urine Leukocytes - Negative Esterase Imaging Data CT scan - abdomen/pelvis: Radiologist's Impression: Nephrolithiasis lower pole of the left kidney, 2 mm obstructing calculus right UPJ with mild renal edema and mild hydro ureter nephrosis on the right. Pelviectasis of the left kidney. Post cholecystectomy. Normal appendix. Decompressed left hemicolon can not exclude mild colitis. No significant diverticular disease MDM Narrative Medical decision making narrative: Patient's labs are unremarkable. Hematuria but no signs of UTI. CT scan shows nephrolithiasis but no ureteral lithiasis. I suspect that this is not the cause of her abdominal discomfort today as her pain is also in the front of the abdomen. She has had 3 episodes of diarrhea since last evening. This started after she started having the abdominal pain. I suspect that the abdominal pain is most likely related to that rather than the kidney stones. I discuss this with her. Will try Tylenol and ibuprofen. Will also try Bentyl. Was given a dose here in the ER. I did recommend that she contact her urologist for follow-up to discuss the kidney stones that were seen today. Patient was given return precautions. Discharge Plan Departure Patient Disposition: Home Clinical Impression: Abdominal pain Instructions: DI for Abdominal Pain-Adult Activity Restrictions/Additional Instructions: You do have kidney stones in both of your kidneys however I do not believe that this is causing your discomfort today. I do recommend that you contact your urologist for follow-up of these. These would not cause pain in the front of your abdomen. The CT scan otherwise is unremarkable. Your discomfort is most likely related to the diarrhea that you had last evening. We can try a medicine called Bentyl. This can help with some abdominal cramping and spasming. A prescription was sent to [facility]. Contact your primary doctor for a follow-up. Continue to take the rest of your medications as directed. Prescriptions: New dicyclomine 10 mg capsule 10 mg PO QID PRN (Reason: abdominal pain) Qty: 20 0RF No Action naproxen [Naprosyn] 500 mg tablet 500 mg PO BID PRN (Reason: pain) Qty: 60 1RF tramadol 50 mg tablet 50 mg PO BID PRN (Reason: pain) Qty: 30 0RF gabapentin 300 mg capsule 2,100 mg PO DAILY Patient Comments: 2 tabs am, noon, 3 tabs hs cetirizine [Aller-Domenic] 10 mg tablet 10 mg PO DAILY omega 5-khj-kdt-fish oil [Fish Oil] 1,000 mg (120 mg-180 mg) capsule 1,400 mg PO BEDTIME Patient Comments: 1400 MG oxycodone-acetaminophen [Percocet] 5-325 mg tablet 1 tab PO Q8H PRN (Reason: pain) Qty: 14 0RF ketorolac 10 mg tablet 10 mg PO Q8H PRN (Reason: pain) Qty: 30 0RF Rx Instructions: with food and water lidocaine [Lidoderm] 5 % adhesive patch,medicated 1 patch topical DAILY PRN (Reason: pain) Qty: 15 0RF Rx Instructions: leave on most painful area for up to 12 hrs liraglutide 0.6 mg/0.1 mL (18 mg/3 mL) pen injector 1.2 mg SUBCUT DAILY Rx Instructions: inject 0.6 mg under the skin daily for 7 days. tgeb 1.2 mg daily. fluticasone propionate 50 mcg/actuation spray,suspension 2 spray intranasal DAILY Rx Instructions: administer into each nostril indomethacin 50 mg capsule 50 mg PO TID Rx Instructions: administer with food or milk methocarbamol 500 mg tablet 500 mg PO QID PRN Rx Instructions: TAKE 1-2 TABLETS (500-1,000 MG) BY MOUTH 4 TIMES A DAY NEEDED FOR MUSCLE SPASM. albuterol sulfate 90 mcg/actuation HFA aerosol inhaler 2 puff inhalation Q4-6H PRN bupropion HCl 150 mg tablet extended release 24 hr 150 mg PO QAM atorvastatin 10 mg tablet 10 mg PO DAILY aripiprazole 10 mg tablet 10 mg PO DAILY oxybutynin chloride 5 mg tablet 5 mg PO TID PRN amlodipine 5 mg tablet 5 mg PO DAILY Referrals: Amor Mccullough MD [Primary Care Provider] - Stand Alone Forms: Patient Portal/API
[2024-01-28 04:46] LABS: Add Manual Diff / Slide Review NO; Basophils Absolute Auto 100 /uL (0-100); Basophils Percent Auto 0.7 % (0-2); Eosinophils Absolute Auto 0 /uL (0-450); Eosinophils Percent Auto 0.3 % (2-4); Hematocrit 39.3 % (36-46); Hemoglobin 13.3 g/dL (12.0-16.0); Lymphocytes Absolute Auto 1500 /uL (1100-4500); Lymphocytes Percent Auto 13.9 % (25-40); Mean Corpuscular HGB Conc 33.8 % (30-36); Mean Corpuscular Hemoglobin 29.1 PG (26-34); Monocytes Absolute Auto 700 /uL (0-900); Monocytes Percent Auto 6.3 % (3-14); Neutrophils Absolute Auto 8400 /uL (1500-7000); Neutrophils Percent Auto 78.8 % (50-75); Platelet Count 275 X10^3/uL (150-400); Red Blood Cell Count 4.57 X10^6/uL (4.0-5.2); Red Cell Distribution Width 13.7 % (11.6-14.8); White Blood Cell Count 10.7 X10^3/uL (4.5-11.0)
[2024-01-28 04:58] LABS: Alanine Aminotransferase 25 IU/L (<35); Albumin 4.3 g/dL (3.5-5.0); Albumin Globulin Ratio 1.1 (1.0-2.8); Alkaline Phosphatase 82 U/L (38-126); Aspartate Aminotransferase 34 IU/L (14-36); Bilirubin Total 0.7 mg/dL (0.2-1.3); Blood Urea Nitrogen 20 mg/dL (7-17); Calcium 9.5 mg/dL (8.4-10.2); Carbon Dioxide 26 mmol/L (22-32); Chloride 106 mmol/L (98-107); Estimated Glomerular Filt Rate > 60 mL/min (>60); Globulin 3.9 g/dL (1.7-4.1); Glucose 133 mg/dL (70-100); HEMOLYSIS < 15 (0-50); Lipase 63 U/L (23-300); Potassium 4.1 mmol/L (3.4-5.1); Sodium 139 mmol/L (137-145); Total Protein 8.2 g/dL (6.3-8.2)
[2024-01-28] MEDS: SODIUM CHLORIDE 0.9% 1,000 ML 1000 ML IV (04:58)
--- NOTE | 2024-01-28 05:03 | PC.NURSE ---
Pt ambulated to bathroom well with just standby assist. Pt states once she got back into bed after urinating she had pain radiating from the left now over to the right side of her back. Pt states this is a new pain.
[2024-01-28 05:08] LABS: Bacteria Urine Occasional (0-1); Culture Indicated Urine Cult Not Indicated; RBC Urine None Seen (0-5/HPF); Squamous Epithelial Cell Urine 0-1 /HPF (0-5/HPF); Urine Volume 10mL (spun); WBC Urine None Seen (0-5/HPF)
[2024-01-28] MEDS: KETOROLAC 30 MG/ML VIAL IV (05:26)
[2024-01-28] MEDS: DICYCLOMINE 10 MG CAPSULE PO (06:02)
== END 2024-01-28 06:15 | disposition home or self-care (01) ==
PROVIDERS: Emergency Provider Emergency Medicine; Family Provider Family Medicine; PCP Family Medicine
DX: R10.30 Lower abdominal pain, unspecified (principal); R31.9 Hematuria, unspecified; N20.0 Calculus of kidney
CPT/HCPCS: 36415; 74177; 80053; 81003; 81015; 83690; 85025; 87086; 96374; 99284; J1885; Q9967

== ENCOUNTER 2024-04-23 09:16 | Outpatient (CLI) | payer OTHER, MEDICAID, SELFPAY ==
[2024-04-23] VITALS (10 sets, daily range): BP systolic 143–187; BP diastolic 64–112; PULSE 80–95; RESP 12–18; TEMP 37.2; O2SAT 95–100
--- NOTE | 2024-04-23 10:26 | DI.RAD.S_ITS ---
PROCEDURE: PAIN L/S FACET INJ/BLK 1ST JEROD INDICATIONS: BILATERAL L4, L5 S1 MEDIAL BRANCH BLOCK - LA COMPARISON: [facility], XA, PAIN L/S FACET INJ/BLK 1ST JEROD, 01/14/2020, 12:11. FINDINGS: Fluoroscopic spot filming was performed to verify placement of spinal needles at the bilateral L4, L5, and S1 level(s), as labeled on the films. Appropriate location(s) of the needle tip(s) was confirmed by injection of iodinated contrast. IMPRESSION: Intraoperative fluoroscopy for nerve blocks. Dictated by: Mirtha Garrett M.D. on 04/23/2024 at 17:17 Approved by: Mirtha Garrett M.D. on 04/23/2024 at 17:18
[2024-04-23] MEDS: MIDAZOLAM 2 MG/2 ML VIAL IV ×2 (11:12→11:25)
[2024-04-23] MEDS: BUPIVACAINE 0.5% (PF) 10 ML VIAL 5 ML INJ (11:16)
[2024-04-23] MEDS: iopamidoL 15 ML VIAL 3 ML INJ (11:17)
[2024-04-23] MEDS: LIDOCAINE 1% 20 ML 5 ML INJ (11:17)
--- NOTE | 2024-04-23 11:38 | P.PCN_ITS ---
Date/Time/Diagnoses Date of procedure: 04/23/24 Time of procedure: 11:39 Pre-procedure diagnosis: 1. FACET ARTHROPATHY Post-procedure diagnosis: same Procedure Notes Procedure: 1. BILATERAL- L4, L5 and S1 DIAGNOSTIC MB BLOCKS with LA Anesthetic Indications: Francesco is referred by Dr. Mccullough for treatment of Bilateral Axial LBP. Physician: Chin Keller Total Fluoroscopy time (seconds): 13 Total sedation minutes: 20 Complications: none Procedure in detail & Post-procedure care: DESCRIPTION OF PROCEDURE Fluoroscopically guided, contrast-controlled bilateral L4, L5 and S1 medial branch blocks with 0.5cc of 0.5% Marcaine. Following review of allergy and review of potential side effects and complications, including, but not necessarily limited to, infection, allergic reaction, local tissue breakdown, nerve injury, paralysis, stroke and possible , the patient indicated that the patient understood and agreed to proceed. An informed consent document was signed by the patient, witnessed by a nurse, and placed in the patient's chart. After review of previous anaesthesic history and IV conscious sedation the patient was deemed safe to proceed with today's procedure with IV conscious sedation as ASA class II designation. Safety time-out was performed to confirm patient ID, procedure to be performed and site of procedure. IV sedation was accomplished with a combination of 4mg of Versed was administered by the RN after DO order, titrated to patient comfort during the course of the procedure while the patient remained responsive to all verbal commands In the prone position, following sterile prep and drape of the lumbar region, the right L4, L5 and S1 anatomical location of the medial branch of the dorsal ramus was identified fluoroscopically. Subsequently an anesthetic skin wheal using 1% lidocaine solution was initiated at each of the anatomical spots. Subsequently then a 22-gauge 3.5-inch spinal needle was atraumatically introduced and advanced under fluoroscopic guidance at each of the corresponding sites at the right L4, L5 and S1 MB. After negative aspiration, 0.2cc of Isovue 200 was injected, confirming placement without vascular or intrathecal uptake. Subsequently then 0.5cc of 0.5% Marcaine solution was injected at each of the corresponding sites at the right L4, L5 and S1 medial branch locations. The identical procedure was replicated on the left. The patient tolerated the procedure well without signs or symptoms of complications prior to transfer to the recovery area continued monitoring without incident. Post-procedure, the patient was monitored initiating provocative activities to measure the amount of relief from block of the facetogenic pain. The patient reported a VAS of 7 prior to the procedure and a post-procedure VAS of 1. It has been a pleasure to assist in the diagnostic and therapeutic care of your patient. POST OP INSTRUCTIONS The patient was provided with a Pain Log to complete over the next several hours and subsequent days prior to the patient's follow up with the ordering physician. If the patient has mercury cell cleaner relief to the solution applied, then they may be a candidate for medial branch rhizotomy. The patient is aware, was provided, once again, with a Pain Log and will follow up with the referring physician for review and clinical correlation
== END 2024-04-23 12:05 | disposition home or self-care (01) ==
LOC: RAD 09:16
PROVIDERS: Family Provider Family Medicine; PCP Family Medicine; Referring Provider Physical Medicine & Rehabilitation; Visit Provider Physical Medicine & Rehabilitation
DX: M47.816 Spondylosis without myelopathy or radiculopathy, lumbar region (principal); M47.817 Spondylosis without myelopathy or radiculopathy, lumbosacral region
CPT/HCPCS: 64493; 64494; 99152; J2250

== ENCOUNTER 2024-08-20 09:11 | Outpatient (CLI) | payer OTHER, MEDICAID, SELFPAY ==
[2024-08-20] VITALS (9 sets, daily range): BP systolic 144–167; BP diastolic 76–94; PULSE 83–89; RESP 12–20; TEMP 37.2; O2SAT 97–100
--- NOTE | 2024-08-20 10:15 | DI.RAD.S_ITS ---
PROCEDURE: PAIN L/S FACET INJ/BLK 1ST JEROD INDICATIONS: SPONDYLOSIS COMPARISON: [facility], , PAIN L/S FACET INJ/BLK 1ST JEROD, 04/23/2024, 11:17. FINDINGS: Fluoroscopic spot filming was performed to verify placement of spinal needles at the bilateral L4, L5, and S1 level(s), as labeled on the films. Appropriate location(s) of the needle tip(s) was confirmed by injection of iodinated contrast. IMPRESSION: Intraoperative guidance provided. Dictated by: Reginald Mahajan M.D. on 08/20/2024 at 19:11 Approved by: Reginald Mahajan M.D. on 08/20/2024 at 19:12
[2024-08-20] MEDS: MIDAZOLAM 2 MG/2 ML VIAL IV ×2 (10:36→10:41)
[2024-08-20] MEDS: LIDOCAINE 1% 20 ML 5 ML INJ (10:37)
[2024-08-20] MEDS: iopamidoL 15 ML VIAL 3 ML INJ (10:37)
[2024-08-20] MEDS: LIDOCAINE 2% INJ MDV 20ML 5 ML INJ ×2 (10:38→10:52)
--- NOTE | 2024-08-20 11:04 | PM.PROC.IR.1 ---
Date/Time/Diagnoses Date of procedure: 08/20/24 Time of procedure: 11:04 Pre-procedure diagnosis: 1. FACET ARTHROPATHY Post-procedure diagnosis: same Procedure Notes Procedure: 1. BILATERAL- L4, L5 and S1 DIAGNOSTIC MB BLOCKS with SA Anesthetic Indications: Francesco is referred by Dr. Mccullough for treatment of Bilateral Axial LBP. Physician: Chin Keller Total Fluoroscopy time (seconds): 17 Total sedation minutes: 22 Complications: none Procedure in detail & Post-procedure care: DESCRIPTION OF PROCEDURE Fluoroscopically guided, contrast-controlled bilateral L4, L5 and S1 medial branch blocks with 0.5cc of 2% Lidocaine. Following review of allergy and review of potential side effects and complications, including, but not necessarily limited to, infection, allergic reaction, local tissue breakdown, nerve injury, paralysis, stroke and possible , the patient indicated that the patient understood and agreed to proceed. An informed consent document was signed by the patient, witnessed by a nurse, and placed in the patient's chart. After review of previous anaesthesic history and IV conscious sedation the patient was deemed safe to proceed with today's procedure with IV conscious sedation as ASA class II designation. Safety time-out was performed to confirm patient ID, procedure to be performed and site of procedure. IV sedation was accomplished with a combination of 4mg of Versed was administered by the RN after DO order, titrated to patient comfort during the course of the procedure while the patient remained responsive to all verbal commands In the prone position, following sterile prep and drape of the lumbar region, the right L4, L5 and S1 anatomical location of the medial branch of the dorsal ramus was identified fluoroscopically. Subsequently an anesthetic skin wheal using 1% lidocaine solution was initiated at each of the anatomical spots. Subsequently then a 22-gauge 3.5-inch spinal needle was atraumatically introduced and advanced under fluoroscopic guidance at each of the corresponding sites at the right L4, L5 and S1 MB. After negative aspiration, 0.2cc of Isovue 200 was injected, confirming placement without vascular or intrathecal uptake. Subsequently then 0.5cc of 2% Lidocaine solution was injected at each of the corresponding sites at the right L4, L5 and S1 medial branch locations. The identical procedure was replicated on the left. The patient tolerated the procedure well without signs or symptoms of complications prior to transfer to the recovery area continued monitoring without incident. Post-procedure, the patient was monitored initiating provocative activities to measure the amount of relief from block of the facetogenic pain. The patient reported a VAS of 7 prior to the procedure and a post-procedure VAS of 1. It has been a pleasure to assist in the diagnostic and therapeutic care of your patient. POST OP INSTRUCTIONS The patient was provided with a Pain Log to complete over the next several hours and subsequent days prior to the patient's follow up with the ordering physician. 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 The patient is aware, was provided, once again, with a Pain Log and will follow up with the referring physician for review and clinical correlation
== END 2024-08-20 11:25 | disposition home or self-care (01) ==
PROVIDERS: Family Provider Family Medicine; PCP Family Medicine; Referring Provider Physical Medicine & Rehabilitation; Visit Provider Physical Medicine & Rehabilitation
DX: M47.816 Spondylosis without myelopathy or radiculopathy, lumbar region (principal); M47.817 Spondylosis without myelopathy or radiculopathy, lumbosacral region
CPT/HCPCS: 64493; 64494; 99152; J2250

== ENCOUNTER 2025-01-14 10:05 | Outpatient (CLI) | payer MEDICARE, MEDICAID, SELFPAY ==
[2025-01-14] VITALS (18 sets, daily range): BP systolic 127–169; BP diastolic 71–88; PULSE 78–96; RESP 16–23; O2SAT 93–100
[2025-01-14] MEDS: MIDAZOLAM 2 MG/2 ML VIAL IV ×3 (12:13→12:35)
[2025-01-14] MEDS: ONDANSETRON 4 MG/2 ML INJ IV (12:13)
[2025-01-14] MEDS: fentaNYL 100 MCG/2 ML INJ 50 MCG IV (12:13)
[2025-01-14] MEDS: BUPIVACAINE 0.5% (PF) 10 ML VIAL 5 ML INJ (12:21)
[2025-01-14] MEDS: LIDOCAINE 1% 20 ML 5 ML INJ (12:21)
[2025-01-14] MEDS: fentaNYL 100 MCG/2 ML INJ 25 MCG IV (13:00)
--- NOTE | 2025-01-14 13:10 | P.PCN_ITS ---
Date/Time/Diagnoses Date of procedure: 01/14/25 Time of procedure: 13:10 Pre-procedure diagnosis: 1. RECALCITRANT FACET ARTHROPATHY Post-procedure diagnosis: same Procedure Notes Procedure: 1. BILATERAL L4 AND L5 MEDIAL BRANCH RADIOFREQUENCY NEUROTOMY AND S1 DORSAL RAMUS BRANCH RADIOFREQUENCY NEUROTOMY Indications: Francesco is referred by Dr. Mccullough for treatment of facet arthropathy. Physician: Chin Keller Total Fluoroscopy time (seconds): 16 Total sedation minutes: 52 Complications: none Procedure in detail & Post-procedure care: DESCRIPTION OF PROCEDURE Bilateral L4 and L5 medial branch radiofrequency neurotomy and bilateral S1 dorsal ramus radiofrequency neurotomy under fluoroscopy with conscious sedation. The patient is well known to this clinic having undergone previous facet injections with good but temporary relief. The patient has experienced appropriate, concordant relief with previous facet and median branch blocks but the patient's pain has been recalcitrant to further conservative measures. Therefore, based upon the patient's relief and persistent symptoms, the patient is considered an appropriate candidate for facet rhizotomy. All of the patient's questions regarding the risks versus benefits of the procedure, including, but not limited to, bleeding, infection, temporary as well as lasting nerve injury, paralysis, stroke, and , as well treatment alternatives were answered to satisfaction. After obtaining informed consent, denial of pertinent drug allergies, as well as being made aware of the potential risks of bleeding, infection, spinal cord trauma, paralysis, temporary and permanent nerve damage, seizure, stroke, and possible , the patient was brought to the fluoroscopy suite and positioned prone on the fluoroscopy table. The lumbar region was prepped in usual sterile fashion and covered with a fenestrated drape in the usual sterile fashion. Appropriate monitors applied including pulse oximeter, pulse, and blood pressure for regular monitoring throughout the procedure. After review of previous anaesthesic history and IV conscious sedation the patient was deemed safe to proceed with today's procedure with IV conscious sedation as ASA class II designation. Safety time-out was performed to confirm patient ID, procedure to be performed and site of procedure. IV sedation was accomplished with a combination of 6mg of Versed and 75mcg of Fentanyl administered by the RN after DO order, titrated to patient comfort during the course of the procedure while the patient remained responsive to all verbal commands. After local infiltration using 1% lidocaine, under fluoroscopic guidance, a 15- cm RF insulated needle with a 10-mm active tip was positioned parallel to the junction of the right sacral ala and the superior articulating process where the S1 dorsal ramus resides. Needle placement was confirmed with motor stimulation of .5v on the right which produced local stimulation without radicular component. The stimulation was then increased to 2v with, once again, only local multifidus stimulation without radicular component. The needle was then removed and the identical procedure was performed along the length of the right L5 medial branch with motor stimulation at .7v on the right. The identical procedure was once again performed along the length of the right L4 medial branch with motor stimulation of .5v on the right. The medial branches were then anesthetised with 0.5% Marcaine. This was then followed by two discreet lesions performed at 80 degrees Celsius for 90 seconds each. The identical procedure was repeated on the left. The patient tolerated the procedure well without signs or symptoms of complications prior to transfer to the recovery area continued monitoring without incident. The patient was then transferred to the recovery area where they were observed for an appropriate period of time after the injection. The patient reported a VAS score of 8 prior to the procedure and a post-procedure VAS of 0. POST OP INSTRUCTIONS The patient was provided a Pain Log to continue to record the patient's response to the target-specific procedure prior to the patient's follow-up visit with the referring physician. Additionally, specific post-injection care instructions and a contact number to our office were provided if concerns arise regarding possible complications associated with the procedure are suspected.
== END 2025-01-14 13:37 | disposition home or self-care (01) ==
PROVIDERS: Family Provider Family Medicine; Referring Provider Physical Medicine & Rehabilitation; Visit Provider Physical Medicine & Rehabilitation
DX: M47.817 Spondylosis without myelopathy or radiculopathy, lumbosacral region (principal); M47.816 Spondylosis without myelopathy or radiculopathy, lumbar region
CPT/HCPCS: 64635; 64636; 99152; 99153; J2250; J2405; J3010

== ENCOUNTER → 2025-01-27 11:02 | Outpatient (CLI) | payer MEDICARE, MEDICAID, SELFPAY ==
[2025-01-27 18:40] LABS: Add Manual Diff / Slide Review NO; Basophils Absolute Auto 100 /uL (0-100); Basophils Percent Auto 1.1 % (0-2); Eosinophils Absolute Auto 200 /uL (0-450); Eosinophils Percent Auto 2.3 % (2-4); Hematocrit 40.9 % (36-46); Hemoglobin 13.6 g/dL (12.0-16.0); Lymphocytes Absolute Auto 2900 /uL (1100-4500); Lymphocytes Percent Auto 41.9 % (25-40); Mean Corpuscular HGB Conc 33.2 % (30-36); Mean Corpuscular Hemoglobin 28.9 PG (26-34); Mean Corpuscular Volume 87.2 fL (80-100); Monocytes Absolute Auto 600 /uL (0-900); Monocytes Percent Auto 8.9 % (3-14); Neutrophils Absolute Auto 3200 /uL (1500-7000); Neutrophils Percent Auto 45.8 % (50-75); Platelet Count 257 X10^3/uL (150-400); Red Blood Cell Count 4.69 X10^6/uL (4.0-5.2); Red Cell Distribution Width 13.5 % (11.6-14.8); White Blood Cell Count 6.9 X10^3/uL (4.5-11.0)
[2025-01-27 18:52] LABS: Hemoglobin A1C% w Est Avg Glu 5.6 % (4.0-6.0)
[2025-01-27 18:54] LABS: Alanine Aminotransferase 31 IU/L (<35); Albumin 4.4 g/dL (3.5-5.0); Albumin Globulin Ratio 1.4 (1.0-2.8); Alkaline Phosphatase 73 U/L (38-126); Aspartate Aminotransferase 34 IU/L (14-36); Bilirubin Total 0.6 mg/dL (0.2-1.3); Blood Urea Nitrogen 22 mg/dL (7-17); C-Reactive Protein Quant < 0.5 mg/dL (<1.0); Calcium 9.8 mg/dL (8.4-10.2); Carbon Dioxide 23 mmol/L (22-32); Chloride 106 mmol/L (98-107); Estimated Glomerular Filt Rate > 60 mL/min (>60); Globulin 3.2 g/dL (1.7-4.1); Glucose 152 mg/dL (70-100); HEMOLYSIS < 15 (0-50); Potassium 4.4 mmol/L (3.4-5.1); Sodium 140 mmol/L (137-145); Total Protein 7.6 g/dL (6.3-8.2)
[2025-01-27 19:55] LABS: Erythrocyte Sedimentation Rate 27 MM/HR (0-20)
== END ==
PROVIDERS: Family Medicine; Family Provider Family Medicine; PCP Physician Assistant Medical; Visit Provider Physician Assistant Medical
DX: R73.03 Prediabetes (principal); L29.9 Pruritus, unspecified; R07.9 Chest pain, unspecified; M19.90 Unspecified osteoarthritis, unspecified site; R25.2 Cramp and spasm
CPT/HCPCS: 80053; 82785; 83036; 85025; 85651; 86003; 86038; 86140

== ENCOUNTER 2025-04-07 07:22 | Day surgery (SDC) | payer MEDICARE, MEDICAID, SELFPAY ==
--- NOTE | 2025-04-07 | PATH_ITS ---
[facility] Accession Number: [id number] No. of containers..01 Tissue . 01 Material submitted: . colon - COLON, RIGHT POLYP . 01 Diagnosis: COLON, RIGHT POLYP: Tubular adenoma. STO 04/13/2025 [facility] Local . 01 Electronically signed: . Raudel Urena MD, Pathologist NPI- [id number] . 01 Gross description: . COLON, RIGHT POLYP: Received in formalin are 2 fragment(s) of cheney, soft tissue measuring 0.3 x 0.2 x 0.2 cm to 0.6 x 0.5 x 0.3 cm submitted entirely in 1 cassette(s) /QAMAR 04/13/2025 [facility] Local . 01 Pathologist provided ICD-10: D12.2 . 01 CPT . 751717 Specimen Comment: A courtesy copy of this report has been sent to [phone] Performed at: [address] [facility] [address] [address], [place], [place] [id number] MD Raudel Urena MD Phone: [phone]
[2025-04-07 08:07] VITALS: BP 184/94; PULSE 105; RESP 18; TEMP 36.9; O2SAT 96; BMI 50.1
[2025-04-07] MEDS: LACTATED RINGERS 1,000 ML 120 ML IV (08:26)
--- NOTE | 2025-04-07 08:32 | PM.HP.IH.1 ---
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 associated with 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 incidents Migraines Morbid obesity with body mass index (BMI) of 50.0 to 59.9 in adult Nausea & vomiting Obstructive sleep apnea (~1998) PTSD (post-traumatic stress disorder) Restless leg syndrome (~1998) Surgical History Anesthesia H/O: hysterectomy (~2000) History of cholecystectomy (~2018) Previous section (~1992) S/P hysterectomy Family History Grandmother Hypertension Breast cancer Hyperlipidemia Father Hypertension Gall stone Hyperlipidemia Mother Mental health problem Fibromyalgia Social History marital status: unmarried,living together details: Lives with boyfriend number of children: 1 household members: significant other and children occupational status: employed 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 Keller for procedures tramadol: Dr. Keller for procedures 02/2025 Meds Home Medications and Allergies Home Medications ?Medication ?Instructions ?Recorded ?Confirmed ?Type cetirizine 10 mg tablet (Aller-Domenic) 10 mg PO DAILY 04/10/18 03/08/25 History aripiprazole 2 mg tablet 2 mg PO DAILY 07/08/24 03/08/25 History bupropion HCl 150 mg 24 hr tablet, 150 mg PO DAILY 07/08/24 03/08/25 History extended release lamotrigine 150 mg tablet 150 mg PO BID 07/08/24 03/08/25 History tramadol 50 mg tablet 50 mg PO TID PRN pain #30 tabs 09/18/24 03/08/25 Rx Held on 02/05/25. Instructions: not taking baclofen 10 mg tablet 10 mg PO QID PRN muscle spasm #60 12/23/24 03/08/25 Rx Held on 02/05/25. tabs Instructions: not taking currently albuterol sulfate 90 mcg/actuation 2 puff inhalation Q4-6H PRN 12/29/24 03/08/25 Rx aerosol inhaler shortness of breath or wheezing #8.5 grams hydrocortisone 2 % lotion 1 applic topical BID PRN itchy 01/26/25 03/08/25 Rx skin #59.2 mL fluticasone propionate 50 2 spray intranasal DAILY allergies 02/05/25 03/08/25 Rx mcg/actuation nasal #16 grams spray,suspension azelastine 137 mcg (0.1 %) nasal 1 spray intranasal BID 03/08/25 03/08/25 Rx spray antihistamine nasal spray #30 mL ipratropium bromide 21 mcg (0.03 2 spray intranasal TID decreases 03/08/25 03/08/25 Rx %) nasal spray nasal drainage #30 mL sodium,potassium,mag sulfates 17.5 See Rx Instructions PO .COMPLEX 03/08/25 03/08/25 Rx gram-3.13 gram-1.6 gram oral soln #354 mL (Suprep Bowel Prep Kit) allopurinol 100 mg tablet 100 mg PO DAILY gout #90 tabs 03/12/25 Rx amlodipine 5 mg tablet 5 mg PO DAILY blood pressure. take 03/12/25 Rx every day even if normal #90 tabs atorvastatin 10 mg tablet 10 mg PO BEDTIME cholesterol. 03/12/25 Rx prevents heart attack/ stroke #90 tabs metformin 500 mg tablet,extended 500 mg PO QPM prediabetes #90 tabs 03/12/25 Rx release 24 hr metronidazole 0.75 % topical gel 1 applic topical BID Thin layer to 03/12/25 Rx face. Rosacea #45 grams spironolactone 50 mg tablet 50 mg PO DAILY blood pressure. 03/12/25 Rx take every day even if normal. #90 tabs tolterodine 4 mg capsule,extended 4 mg PO DAILY for urine #90 caps 03/12/25 Rx release 24 hr gabapentin 300 mg capsule 2,100 mg (7 x 300 mg) PO DAILY 03/25/25 Rx #420 caps Allergies Allergy/AdvReac Type Severity Reaction Status Date / Time duloxetine (DULOXETINE) Allergy Severe SOB Verified 03/08/25 10:04 hydrocodone (HYDROCODONE) Allergy Severe HEADACHE Verified 03/08/25 10:04 VOMITING Penicillins (PENICILLINS) Allergy Intermediate RASH Verified 03/08/25 10:04 Exam Vital Signs (past 8 hours): - 04/07/25 08:07 Temperature 98.4 F Pulse Rate 105 H Respiratory Rate 18 Blood Pressure 184/94 H Pulse Oximetry 96 Oxygen Delivery Method Room Air Oxygen Delivery Method Room Air Narrative Exam Narrative: Oropharynx free of lesion Assessment & Plan Assessment & Plan narrative: History of colon polyps need for follow-up colonoscopy. Risks, but alternatives have been discussed. Time-Based Coding :: [TOTAL MINUTES] spent with patient and on the chart (including review of chart, obtaining history, exam, reviewing outside data, placing orders, documenting exam and treatment plan, and counseling patient) on [DATE]. PROFEE Field Service Representative Document charge(s): No
--- NOTE | 2025-04-07 08:34 | PM.OP.COLON ---
Operative Date/Time/Diagnoses Date of procedure: 04/07/25 Time of procedure: 08:58 Pre-op diagnosis: See indication and findings Post-op diagnosis: same Procedure & Clinicians Study performed: Colonoscopy Same procedure as scheduled: Yes Indications: History of colon polyps Surgeon: Yamilet Gastelum Procedure Notes Procedure in detail: After informed consent was obtained the patient was placed in left lateral decubitus decubitus position. The video colonoscope was placed in the rectum slowly advanced cecum. Preparation was good. On slow withdrawal mucosa was carefully examined. The scope was removed. The patient tolerated the procedure well. Blood loss none Complications none Sedation mac Findings 1. 1 cm pedunculated polyp in the right colon cold snared and removed completely 2. Otherwise negative colonoscopy to cecum Patient should have follow-up colonoscopy in 5 years
[2025-04-07 09:03] VITALS: BP 138/77; PULSE 91; RESP 16; TEMP 36.2; O2SAT 98
[2025-04-07 09:08] VITALS: BP 120/71; PULSE 91; RESP 15; O2SAT 99
[2025-04-07 09:21] VITALS: BP 113/74; PULSE 95; RESP 14; O2SAT 99
== END 2025-04-07 09:30 | disposition home or self-care (01) ==
PROVIDERS: Family Provider Family Medicine; PCP Family Medicine; Referring Provider Internal Medicine Gastroenterology; Visit Provider Internal Medicine Gastroenterology
PROC: 0DJD8ZZ Inspection of Lower Intestinal Tract, Via Natural or Artificial Opening Endoscopic (ICD-10-PCS; CPT 45378; principal; 2025-04-07 08:45)
DX: Z12.11 Encounter for screening for malignant neoplasm of colon (principal); Z86.0100 Personal history of colon polyps, unspecified; D12.2 Benign neoplasm of ascending colon
CPT/HCPCS: 45385; J2704

== ENCOUNTER → 2025-05-11 12:49 | Outpatient (CLI) | payer MEDICARE, MEDICAID, SELFPAY | PROVIDERS: PCP Family Medicine; Visit Provider Physician Assistant | DX: R10.9 Unspecified abdominal pain (principal) | CPT/HCPCS: 87086 ==

== ENCOUNTER → 2025-05-12 10:32 | Outpatient (CLI) | payer MEDICARE, MEDICAID, SELFPAY ==
[2025-05-12 19:48] LABS: Cholesterol 172 mg/dL (140-199); HDL Cholesterol 45 mg/dL (40-60); Triglycerides 168 mg/dL (35-150)
[2025-05-12 20:12] LABS: Hemoglobin A1C% w Est Avg Glu 5.5 % (4.0-6.0)
[2025-05-12 20:15] LABS: Thyroid Stimulating Hormone 1.09 uIU/mL (0.47-4.68)
== END ==
PROVIDERS: PCP Family Medicine; Visit Provider Family Medicine
DX: R73.03 Prediabetes (principal); E78.2 Mixed hyperlipidemia; E66.01 Morbid (severe) obesity due to excess calories; Z68.43 Body mass index [BMI] 50.0-59.9, adult; I10 Essential (primary) hypertension
CPT/HCPCS: 80061; 83036; 84443

== ENCOUNTER → 2025-06-04 11:36 | Outpatient (CLI) | payer MEDICARE, MEDICAID, SELFPAY ==
--- NOTE | 2025-06-04 11:37 | DI.MG.S_ITS ---
MM screening mammo BI: 06/04/2025. BI-RADS: 1 CLINICAL: 55-year old female for bilateral screening mammogram. Tyrer-Cuzick lifetime risk of 19.8%. No personal or first-degree family history of breast cancer. Current reported family history of breast cancer: maternal grandmother. PRIOR EXAMS , 07/24/2021,10/22/2018, 09/04/2017. MAMMOGRAPHY TECHNIQUE: 2D and 3D (tomosynthesis) digital mammographic views obtained, with additional images as needed for full coverage. Current study was also evaluated with a Computer Aided Detection (CAD) system. DENSITY C. The breasts are heterogeneously dense, which may obscure small masses. MAMMOGRAPHY FINDINGS Bilateral: No suspicious mass, asymmetry, microcalcification, or other abnormality seen. IMPRESSION: * No evidence of malignancy. RECOMMENDATIONS Bilateral * Annual screening mammography. OVERALL ASSESSMENT CATEGORY BI-RADS-1: Negative. [employer] recommends annual screening mammography beginning at age 40 for women with average risk of breast cancer. ELECTRONICALLY SIGNED: Ashia Barahona M.D. on 06/04/2025 at 10:56:56 PM PT Interpreting Station ID: [id number]
== END ==
PROVIDERS: PCP Family Medicine; Referring Provider Family Medicine; Visit Provider Family Medicine
DX: Z12.31 Encounter for screening mammogram for malignant neoplasm of breast (principal); Z80.3 Family history of malignant neoplasm of breast
CPT/HCPCS: 77063; 77067

== ENCOUNTER → 2025-08-18 13:05 | Outpatient (CLI) | payer MEDICARE, MEDICAID, SELFPAY ==
--- NOTE | 2025-08-18 13:08 | DI.MRI.S_ITS ---
PROCEDURE: MR LUMBAR SPINE WO CON INDICATIONS: Lumbar HNP TECHNIQUE: Noncontrast sagittal T1 spin echo and T2 fast echo, sagittal STIR, and T2 fast spin echo through the lumbar spine. In cases with scoliosis, additional coronal T2 fast spin echo may be performed. COMPARISON: [facility], MR, MR LUMBAR SPINE WO CON, 07/16/2018, 10:04. FINDINGS: Image quality: Excellent Please note, there is a partially lumbarized S1. Rudimentary disc is seen at S1-2. Alignment of the lumbar spine is anatomic. Multiple small Schmorl's node at the thoracolumbar junction. Vertebral body height of the lumbar spine is otherwise well maintained. Mild fibrovascular end plate change at T12-L1. Multilevel disc bulge and disc desiccation. Conus terminates at the level of T12-L1, and is unremarkable. Right neural foraminal stenosis: Mild at L3-4, L4-5. Left neural foraminal stenosis: Mild at L2-3, L4-5. Axial images: T12-L1: No central canal stenosis. L1-2: No central canal stenosis. L2-3: No central canal stenosis. L3-4: Mild disc bulge. Mild bilateral facet arthropathy. No central canal stenosis. L4-5: Mild bilateral facet arthropathy. Mild disc bulge. No central canal stenosis. L5-S1: Mild bilateral facet arthropathy. Mild disc bulge. No central canal stenosis. Visualized sacrum is intact. Left extrarenal pelvis. IMPRESSION: 1. Disc bulge at L5-S1, slightly progressed. 2. Multilevel mild neural foraminal stenosis, grossly unchanged. No central canal stenosis. Dictated by: Nikki Humphrey M.D. on 08/18/2025 at 17:38 Approved by: Nikki Humphrey M.D. on 08/18/2025 at 17:50
== END ==
LOC: MRI 13:06
PROVIDERS: PCP Family Medicine; Referring Provider Family Medicine; Visit Provider Physician Assistant Surgical
DX: M47.817 Spondylosis without myelopathy or radiculopathy, lumbosacral region (principal); M51.379 Other intervertebral disc degeneration, lumbosacral region without mention of lumbar back pain or lower extremity pain; M48.061 Spinal stenosis, lumbar region without neurogenic claudication; M47.816 Spondylosis without myelopathy or radiculopathy, lumbar region
CPT/HCPCS: 72148

== ENCOUNTER → 2025-08-25 10:29 | Outpatient (CLI) | payer MEDICARE, MEDICAID, SELFPAY ==
--- NOTE | 2025-08-25 10:30 | DI.CT.S_ITS ---
PROCEDURE: CT CHEST WO CON INDICATIONS: dyspnea, chronic cough not responding to albuterol, steroids TECHNIQUE: Noncontrast 5 mm thick sections acquired from the pulmonary apices to the posterior costophrenic angles. 1 mm lung window, 5 mm thick coronal and sagittal and 7 mm axial MIP reformats were then acquired. For radiation dose reduction, the following was used: automated exposure control, adjustment of mA and/or kV according to patient size. COMPARISON: None. FINDINGS: Image quality: Diagnostic. Lower Neck: No enlarged lymph nodes. Thyroid: No thyroid nodules which require sonographic follow up, per consensus guidelines. Axillae: No enlarged lymph nodes. Chest Wall: Unremarkable. Bones: Age-appropriate bony degenerative changes are seen. Accentuated thoracic kyphosis is seen. Lungs and Pleura: No pneumothorax or pleural effusions. There is focal thickening seen along the right minor fissure, as on series 3, image 174 and on series 5, image 93, measuring 5 mm. Heart: Heart size is normal. No pericardial effusion. Thoracic Vessels: The aorta and pulmonary arteries demonstrate normal size. Mediastinum and Charlette: No enlarged lymph nodes. Esophagus: No wall thickening. No hiatal hernia. Upper Abdomen: Cholecystectomy clips are seen. Incidental note is made of an accessory splenule along the anterior aspect of the primary spleen. IMPRESSION: No imaging explanation is found for this patient's presenting symptoms. No suspicious pulmonary nodules are seen, although there is focal thickening seen along the right minor fissure, which is regarded to be benign. The lungs are otherwise clear. Additional findings: Cholecystectomy Accessory splenule Dictated by: Dipak Toscano M.D. on 08/25/2025 at 10:48 Approved by: Dipak Toscano M.D. on 08/25/2025 at 10:52
[2025-08-25 11:13] LABS: Appearance Urine UA CLEAR; Bilirubin Urine UA NEGATIVE (NEGATIVE); Color Urine UA YELLOW; Glucose Urine UA NEGATIVE (Negative); Ketones Urine UA NEGATIVE (NEGATIVE); Leukocyte Esterase Urine UA NEGATIVE (NEGATIVE); Nitrite Urine UA NEGATIVE (Negative); Occult Blood Urine UA NEGATIVE (Negative); Protein Urine UA NEGATIVE (Negative); Specific Gravity Urine UA 1.010 (1.000-1.035); Urobilinogen Urine UA 0.2 E.U./dL (0.2)
[2025-08-25 11:17] LABS: pH Urine UA 7.5 (4.5-8.0)
[2025-08-25 11:20] LABS: Culture Indicated Urine Cult Not Indicated
[2025-08-26 23:09] LABS: QuantiFERON Mitogen Value >10.00 IU/mL (.); QuantiFERON Nil Value 0.05 IU/mL (.); QuantiFERON TB Gold Plus Negative (Negative); QuantiFERON TB1 Ag Value 0.07 IU/mL (.); QuantiFERON TB2 Ag Value 0.07 IU/mL (.)
== END ==
PROVIDERS: Physician Assistant; PCP Family Medicine; Referring Provider Family Medicine; Visit Provider Family Medicine
DX: Z11.1 Encounter for screening for respiratory tuberculosis (principal); T78.40XS Allergy, unspecified, sequela; R05.3 Chronic cough; R09.89 Other specified symptoms and signs involving the circulatory and respiratory systems; J45.991 Cough variant asthma; R06.00 Dyspnea, unspecified; M54.9 Dorsalgia, unspecified; Z87.442 Personal history of urinary calculi
CPT/HCPCS: 36415; 71250; 81001; 85651; 86140; 86480

== ENCOUNTER → 2025-09-02 09:00 | Outpatient (CLI) | payer MEDICARE, MEDICAID, SELFPAY ==
[2025-09-02 18:42] LABS: Add Manual Diff / Slide Review NO; Hematocrit 42.4 % (36-46); Hemoglobin 14.1 g/dL (12.0-16.0); Lymphocytes Absolute Auto 2600 /uL (1100-4500); Mean Corpuscular HGB Conc 33.2 % (30-36); Mean Corpuscular Hemoglobin 29.4 PG (26-34); Mean Corpuscular Volume 88.6 fL (80-100); Platelet Count 303 X10^3/uL (150-400)
== END ==
PROVIDERS: PCP Family Medicine; Visit Provider Family Medicine
DX: R05.3 Chronic cough (principal); R06.00 Dyspnea, unspecified
CPT/HCPCS: 85025

== ENCOUNTER → 2025-09-14 08:52 | Outpatient (CLI) | payer MEDICARE, MEDICAID, SELFPAY | PROVIDERS: PCP Family Medicine; Referring Provider Family Medicine; Visit Provider Family Medicine | DX: J45.991 Cough variant asthma (principal); R05.3 Chronic cough; R09.89 Other specified symptoms and signs involving the circulatory and respiratory systems; T78.40XS Allergy, unspecified, sequela | CPT/HCPCS: 94060; 94726; 94729 ==